=== PATIENT | female | born 1995 | race Caucasian/White ===

== ENCOUNTER 2016-05-31 14:29 | Emergency (ER) | payer OTHER ==
[2016-05-31] MEDS ORDERED: NORCO, ANEXSIA 5/325MG TABLET (HYDROcodone/ACETAMINOPHEN) As Ordered ONE (16:39)
[2016-05-31 17:11] LABS: BASO % 0.1 % (0.0-1.0); EOS # 0.2 K/mm3 (0.0-0.50); EOS % 3.1 % (0.0-3.0); LARGE UNSTAINED CELL # 0.1 K/mm3 (0.0-0.4); LARGE UNSTAINED CELL % 1.1 % (0.0-4.0); LYMPH # 1.3 K/mm3 (1.5-6.5); LYMPH % 17.2 % (24.0-44.0); MEAN CORPUSCULAR HEMOGLOBIN 31.1 pg (27.0-33.0); MEAN CORPUSCULAR HGB CONC 34.2 g/dl (32.0-36.5); MONO # 0.5 K/mm3 (0.0-0.8); MONO % 6.4 % (0.0-5.0); NEUTROPHILS # 5.2 K/mm3 (1.8-7.7); NEUTROPHILS % 72.2 % (36.0-66.0); PLATELET COUNT, AUTOMATED 248 k/mm3 (150-450); RED CELL DISTRIBUTION WIDTH 12.2 % (11.5-14.5); WHITE BLOOD COUNT 7.3 K/mm3 (4.0-10.0)
[2016-05-31 17:25] LABS: CONTROL LINE HCG INT CTR LINE PRESENT
[2016-05-31 17:30] LABS: ANION GAP 8 MEQ/L (8-16); BLOOD UREA NITROGEN 12 MG/DL (7-18); CALCIUM LEVEL 9.1 MG/DL (8.5-10.1); CARBON DIOXIDE LEVEL 27 MEQ/L (21-32); CHLORIDE LEVEL 106 MEQ/L (98-107); CREATININE FOR GFR 0.71 MG/DL (0.55-1.02); GLOMERULAR FILTRATION RATE > 60.0 (>60); GLUCOSE, FASTING 82 MG/DL (70-105); SODIUM LEVEL 141 MEQ/L (136-145)
--- NOTE | 2016-05-31 18:11 | EDDOCDS ---
Physician Documentation [facility] Name: Karyna Villatoro Age: 21 yrs Sex: Female : 1995 Arrival Date: 05/31/2016 Time: 14:29 Bed PD Private MD: AGAPITO Arellano Disposition: 05/31/16 17:59 Discharged to Home/Self Care. Impression: Pain and other conditions associated with female genital organs and menstrual cycle. - Condition is Stable. - Discharge Instructions: Pelvic Pain, Female. - Prescriptions for [place] 5- 325 mg Oral Tablet - take 1 tablet by ORAL route every 6 hours As needed MDD: 4 tabs; 6 tablet. - Medication Reconciliation, Local Pharmacy Hours form. - Follow up: AGAPITO Arellano; When: 2 - 3 days; Reason: Recheck today's complaints. Follow up: Emergency Department; When: As needed; Reason: Worsening of conditions. - Problem is new. - Symptoms have improved. Historical: - Allergies: No known drug Allergies; - Home Meds: 1. meloxicam 15 mg oral tab 1 tab once daily 2. venlafaxine 75 mg oral cp24 1 cap once daily 3. 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 No barriers to communication noted, The patient speaks fluent [place]ib[place]ian. - Family history: Not pertinent. - : The pt / caregiver states he / she is not on anticoagulants. Home medication list is obtained from the patient. - Exposure Risk Screening:: None identified. 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 9 in. (175.26 cm) (R); Pain 8/10; 17:56 BP 117 / 63; Pulse 68; Resp 18; Temp 99.6; Pulse Ox 98% on R/A; Pain 4/10; ar3 14:32 Body Mass Index 21.41 (65.77 kg, 175.26 cm) gr2 MDM: 15:12 HCG,Serum Qualitative Ordered. EDMS 15:13 Type & Screen Ordered. EDMS 16:34 HYDROcodone-acetaminophen 5 mg-325 mg 1 tabs PO once ordered. ar2 16:35 CBC with Diff Ordered. EDMS 16:35 UA Ordered. EDMS 16:35 MED Profile Ordered. EDMS 17:45 CBC with Diff Reviewed. ar2 17:45 UA Reviewed. ar2 17:45 HCG,Serum Qualitative Reviewed. ar2 17:45 Type & Screen Reviewed. ar2 17:45 MED Profile Reviewed. ar2 18:08 [facility] Payment Agreement was scanned into SocialEngine and attached to record. b 18:08 Financial registration complete. gjb Administered Medications: 16:43 Drug: HYDROcodone-acetaminophen 1 tabs [hydrocodone 5 mg-acetaminophen 325 mg tablet (1 mb9 tabs)] Route: PO; Signatures: Dispatcher MedHost EDMS Selene Hinkle RN RN kcs Johnson, Bruce, RN RN bcj Robertshaw, Aaron, FRANCOISE-Hansa PA-C Sabra Rees Michael RN mb9 The chart was reviewed and I authenticate all verbal orders and agree with the evaluation and treatment provided.Corrections: (The following items were deleted from the chart) 16:35 15:12 COMPLETE BLOOD COUNT+LAB ordered. EDMS EDMS Attachments: 18:08 [facility] Payment Agreement gjb MTDD
--- NOTE | 2016-05-31 18:11 | EDDOCDS ---
Nurse's Notes [facility] Name: Karyna Villatoro Age: 21 yrs Sex: Female : 1995 Arrival Date: 05/31/2016 Time: 14:29 Bed PD Private MD: AGAPITO Arellano Diagnosis: Pain and other conditions associated with female genital organs and menstrual cycle Presentation: 05/31 14:56 Presenting complaint: Patient states: she was 11 days late for her period - last night kcs she had pains and started bleeding and having difficulty walking. Still bleeding today and lots of cramping in the lower abdomen and back - radiates down her legs. Risk factors: The patient reports no loss of conciousness prior to arrival. This patient has not had a hysterectomy. This patient has not begun menopause. Adult Sepsis Screening: The patient does not have new or worsening altered mentation. Patient's respiratory rate is less than 22. Systolic blood pressure is greater than 100. Patient has a qSOFA score of 0- Negative Sepsis Screen. Suicide/Homicide risk assessment- the patient denies having any suicidal and/or homicidal ideations and does not present with any other emotional, behavioral or mental health complaints. Status: The patient is a dependent. Transition of care: patient was not received from another setting of care. 14:56 Acuity: DENZEL Level 3 kcs 14:56 Method Of Arrival: Walkin/Carried/Asstd kcs Triage Assessment: 14:59 General: Appears comfortable, slender, well developed, well nourished, well groomed, kcs Behavior is cooperative, pleasant. Pain: Location: lower back and lower abdomen Pain currently is 8 out of 10 on a pain scale. Pt Declines HIV testing. Neurological: Level of Consciousness is awake, alert. Respiratory: Airway is patent Respiratory effort is even, unlabored, Respiratory pattern is regular, symmetrical. : Reports vaginal bleeding that is bright red heavy flow. Derm: Skin is intact, is healthy with good turgor, Skin is dry, Skin is normal. 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 meloxicam 15 mg oral tab 1 tab once daily 2. venlafaxine 75 mg oral cp24 1 cap once daily 3. 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 No barriers to communication noted, The patient speaks fluent Bahraini. - Family history: Not pertinent. - : The pt / caregiver states he / she is not on anticoagulants. Home medication list is obtained from the patient. - Exposure Risk Screening:: None identified. Screenin:08 Screening information is obtained from the patient. Fall risk: No risks identified. bcj Assistance ADL's: requires no assistance with activities of daily living. Abuse/DV Screen: The patient / caregiver reports he/she is:. Nutritional screening: No deficits noted. Advance Directives: Currently, there is no health care proxy. home support is adequate. Vital Signs: 14:32 BP 127 / 73; Pulse 81; Resp 18 S; Temp 98.5(O); Pulse Ox 98% on R/A; Weight 65.77 kg gr2 (R); Height 5 ft. 9 in. (175.26 cm) (R); Pain 8/10; 17:56 BP 117 / 63; Pulse 68; Resp 18; Temp 99.6; Pulse Ox 98% on R/A; Pain 4/10; ar3 14:32 Body Mass Index 21.41 (65.77 kg, 175.26 cm) gr2 Vitals: 14:32 Log In Time: May 31, 2016 at 14:32. gr2 ED Course: 14:31 Patient visited by Bebo London. gr2 14:31 Patient moved to Waiting gr2 14:32 [place] [facility] [place]. gr2 14:34 Patient visited by eBbo London. gr2 14:34 Patient moved to Pre RCE gr2 14:58 Triage Initiated kcs 15:52 Patient moved to Triage 1 ar3 16:16 Rylan Ernst PA-C is PHCP. ar2 16:16 Alysha Jiménez MD is Attending Physician. ar2 16:16 Patient visited by Rylan Ernst PA-C. ar2 16:21 Patient visited by Rylan Ernst PA-C. ar2 16:41 MED Profile Sent. ar3 16:41 CBC with Diff Sent. ar3 16:41 Type & Screen Sent. ar3 16:41 HCG,Serum Qualitative Sent. ar3 16:47 Patient moved to TR2 ar3 16:47 UA Sent. ar3 17:52 Patient moved to PD mb9 17:53 Patient visited by Dunia Solo PCA. ar3 17:57 Patient visited by Dunia Solo PCA. ar3 17:59 E[place] [facility] [place] Physician. ar2 18:08 No apparent distress. Resting quietly. Awaiting disposition. j 18:08 [facility] Payment Agreement was scanned into Zenput and attached to record. gjb 18:08 The patient / caregiver is instructed regarding the plan of care and ED course. bcj 18:08 No IV's were initiated during this patient's visit. No procedures done that require [facility] assistance. Administered Medications: 16:43 Drug: HYDROcodone-acetaminophen 1 tabs [hydrocodone 5 mg-acetaminophen 325 mg tablet (1 mb9 tabs)] Route: PO; Order Results: Lab Order: HCG,Serum Qualitative; SPEC'M 05/31/16 16:41 Test: HCG, SERUM QUALITATIVE; Value: NEGATIVE; Range: NEGATIVE; Status: F Lab Order: Type & Screen; SPEC'M 05/31/16 16:41 Test: BLOOD TYPE; Value: A POS; Status: F Test: AB SCREEN (INDIRECT HIREN)GEL; Value: NEGATIVE; Status: F Lab Order: CBC with Diff; SPEC'M 05/31/16 16:41 Test: WHITE BLOOD COUNT; Value: 7.3; Range: 4.0-10.0; Units: K/mm3; Status: F Test: RED BLOOD COUNT; Value: 4.37; Range: 4.00-5.40; Units: M/mm3; Status: F Test: HEMOGLOBIN; Value: 13.6; Range: 12.0-16.0; Units: g/dl; Status: F Test: HEMATOCRIT; Value: 39.7; Range: 36.0-47.0; Units: %; Status: F Test: MEAN CORPUSCULAR VOLUME; Value: 91.0; Range: 80.0-96.0; Units: fl; Status: F Test: MEAN CORPUSCULAR HEMOGLOBIN; Value: 31.1; Range: 27.0-33.0; Units: pg; Status: F Test: MEAN CORPUSCULAR HGB CONC; Value: 34.2; Range: 32.0-36.5; Units: g/dl; Status: F Test: RED CELL DISTRIBUTION WIDTH; Value: 12.2; Range: 11.5-14.5; Units: %; Status: F Test: PLATELET COUNT, AUTOMATED; Value: 248; Range: 150-450; Units: k/mm3; Status: F Test: NEUTROPHILS %; Value: 72.2; Range: 36.0-66.0; Abnormal: Above high normal; Units: %; Status: F Test: LYMPH %; Value: 17.2; Range: 24.0-44.0; Abnormal: Below low normal; Units: %; Status: F Test: MONO %; Value: 6.4; Range: 0.0-5.0; Abnormal: Above high normal; Units: %; Status: F Test: EOS %; Value: 3.1; Range: 0.0-3.0; Abnormal: Above high normal; Units: %; Status: F Test: BASO %; Value: 0.1; Range: 0.0-1.0; Units: %; Status: F Test: LARGE UNSTAINED CELL %; Value: 1.1; Range: 0.0-4.0; Units: %; Status: F Test: NEUTROPHILS #; Value: 5.2; Range: 1.8-7.7; Units: K/mm3; Status: F Test: LYMPH #; Value: 1.3; Range: 1.5-6.5; Abnormal: Below low normal; Units: K/mm3; Status: F Test: MONO #; Value: 0.5; Range: 0.0-0.8; Units: K/mm3; Status: F Test: EOS #; Value: 0.2; Range: 0.0-0.50; Units: K/mm3; Status: F Test: BASO #; Value: 0.0; Range: 0.0-0.2; Units: K/mm3; Status: F Test: LARGE UNSTAINED CELL #; Value: 0.1; Range: 0.0-0.4; Units: K/mm3; Status: F Lab Order: UA; SPEC'M 05/31/16 16:47 Test: APPEARANCE, URINE; Value: CLEAR; Range: CLEAR; Status: F Test: COLOR, URINE; Value: YELLOW; Range: YELLOW; Status: F Test: PH,URINE; Value: 6.0; Range: 5.0-9.0; Units: UNITS; Status: F Test: SPECIFIC GRAVITY URINE AUTO; Value: 1.017; Range: 1.002-1.035; Status: F Test: PROTEIN, URINE AUTO; Value: NEGATIVE; Range: NEGATIVE; Units: mg/dL; Status: F Test: GLUCOSE, URINE (UA) AUTO; Value: NEGATIVE; Range: NEGATIVE; Units: mg/dL; Status: F Test: KETONE, URINE AUTO; Value: NEGATIVE; Range: NEGATIVE; Units: mg/dL; Status: F Test: UROBILINOGEN, URINE AUTO; Value: 2.0; Range: 0.0-2.0; Abnormal: Above high normal; Units: mg/dL; Status: F Test: BILIRUBIN, URINE AUTO; Value: NEGATIVE; Range: NEGATIVE; Status: F Test: NITRITE, URINE AUTO; Value: NEGATIVE; Range: NEGATIVE; Status: F Test: LEUKOCYTE ESTERASE, URINE AUTO; Value: NEGATIVE; Range: NEGATIVE; Status: F Test: BLOOD, URINE BLOOD; Value: NEGATIVE; Range: NEGATIVE; Status: F Test: WBC, URINE AUTO; Value: 1; Range: 0-3; Units: /HPF; Status: F Test: RBC, URINE AUTO; Value: 2; Range: 0-3; Units: /HPF; Status: F Test: BACTERIA, URINE AUTO; Value: NEGATIVE; Range: NEGATIVE; Status: F Test: SQUAMOUS EPITHELIAL CELL UR AU; Value: 0; Range: 0-6; Units: /HPF; Status: F Test: MUCUS, URINE; Value: SMALL; Range: NEGATIVE; Status: F Test: HYALINE CAST, URINE AUTO; Value: 0; Range: 0-1; Units: /LPF; Status: F Lab Order: MED Profile; [facility] 05/31/16 16:41 Test: GLUCOSE, FASTING; Value: 82; Range: 70-105; Units: MG/DL; Status: F Test: BLOOD UREA NITROGEN; Value: 12; Range: 7-18; Units: MG/DL; Status: F Test: CREATININE FOR GFR; Value: 0.71; Range: 0.55-1.02; Units: MG/DL; Status: F Test: GLOMERULAR FILTRATION RATE; Value: > 60.0; Range: >60; Status: F Test: SODIUM LEVEL; Value: 141; Range: 136-145; Units: MEQ/L; Status: F Test: POTASSIUM SERUM; Value: 4.0; Range: 3.5-5.1; Units: MEQ/L; Status: F Test: CHLORIDE LEVEL; Value: 106; Range: 98-107; Units: MEQ/L; Status: F Test: CARBON DIOXIDE LEVEL; Value: 27; Range: 21-32; Units: MEQ/L; Status: F Test: ANION GAP; Value: 8; Range: 8-16; Units: MEQ/L; Status: F Test: CALCIUM LEVEL; Value: 9.1; Range: 8.5-10.1; Units: MG/DL; Status: F Test Note: ; Units are mL/min/1.73 m2 Chronic Kidney Disease Staging per NKF: Stage I & II GFR >=60 Normal to Mildly Decreased Stage III GFR 30-59 Moderately Decreased Stage IV GFR 15-29 Severely Decreased Stage V GFR <15 Very Little GFR Left ESRD GFR <15 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 ar2 18:08 Discharge Assessment: patient administered narcotics - yes. Pt provided with safe bcj discharge. The following High Risk Discharge criteria are identified: None. Discharged to home. Condition: stable. Discharge instructions given to patient, Instructed on discharge instructions, follow up and referral plans. No special radiology studies were completed. Property :Personal belongings accompany Pt. 18:10 Patient left the ED. j Signatures: Selene Hinkle, RN RN Devin Rincon RN RN Rylan Nova, MARYELLEN BOJORQUEZ ar2 Dunia Solo, ROMELIA ANIMAL RIDE MANAGER ar3 Bebo London gr2 Jarad Munguia RN RN mb9 Sabra Watts MTDD
--- NOTE | 2016-06-02 19:11 | EDDOCDS ---
Physician Documentation [facility] Name: Karyna Villatoro Age: 21 yrs Sex: Female : 1995 Arrival Date: 05/31/2016 Time: 14:29 Bed PD Private MD: AGAPITO Arellano Disposition: 05/31/16 17:59 Discharged to Home/Self Care. Impression: Pain and other conditions associated with female genital organs and menstrual cycle. - Condition is Stable. - Discharge Instructions: Pelvic Pain, Female. - Prescriptions for [place] 5- 325 mg Oral Tablet - take 1 tablet by ORAL route every 6 hours As needed MDD: 4 tabs; 6 tablet. - Medication Reconciliation, Local Pharmacy Hours form. - Follow up: AGAPITO Arellano; When: 2 - 3 days; Reason: Recheck today's complaints. Follow up: Emergency Department; When: As needed; Reason: Worsening of conditions. - Problem is new. - Symptoms have improved. Historical: - Allergies: No known drug Allergies; - Home Meds: 1. meloxicam 15 mg oral tab 1 tab once daily 2. venlafaxine 75 mg oral cp24 1 cap once daily 3. 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 No barriers to communication noted, The patient speaks fluent Cymro. - Family history: Not pertinent. - : The pt / caregiver states he / she is not on anticoagulants. Home medication list is obtained from the patient. - Exposure Risk Screening:: None identified. 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 9 in. (175.26 cm) (R); Pain 8/10; 17:56 BP 117 / 63; Pulse 68; Resp 18; Temp 99.6; Pulse Ox 98% on R/A; Pain 4/10; ar3 14:32 Body Mass Index 21.41 (65.77 kg, 175.26 cm) gr2 MDM: 15:12 HCG,Serum Qualitative Ordered. EDMS 15:13 Type & Screen Ordered. EDMS 16:34 HYDROcodone-acetaminophen 5 mg-325 mg 1 tabs PO once ordered. ar2 16:35 CBC with Diff Ordered. EDMS 16:35 UA Ordered. EDMS 16:35 MED Profile Ordered. EDMS 17:45 CBC with Diff Reviewed. ar2 17:45 UA Reviewed. ar2 17:45 HCG,Serum Qualitative Reviewed. ar2 17:45 Type & Screen Reviewed. ar2 17:45 MED Profile Reviewed. ar2 18:08 [facility] Payment Agreement was scanned into Amiigo and attached to record. [facility] 18: Financial registration complete. [facility] 06/01 12:49 T-Sheet-- Draft Copy was scanned into Amiigo and attached to record. gb Administered Medications: 05/31 16:43 Drug: HYDROcodone-acetaminophen 1 tabs [hydrocodone 5 mg-acetaminophen 325 mg tablet (1 mb9 tabs)] Route: PO; Signatures: Dispatcher MedHost Selene Kitchen, RN RN Devin Rincon RN RN My Hall, Reg Reg gb Rylan Ernst PA-C PASabra Vasques Michael RN mb9 The chart was reviewed and I authenticate all verbal orders and agree with the evaluation and treatment provided.Corrections: (The following items were deleted from the chart) 16:35 15:12 COMPLETE BLOOD COUNT+LAB ordered. EDMS EDMS Attachments: 18:08 [facility] Payment Agreement [facility] 06/01 12:49 T-Sheet-- Draft Copy gb Chart Complete MTDD
--- NOTE | 2016-06-02 19:11 | EDDOCDS ---
Physician Documentation [facility] Name: Karyna Villatoro Age: 21 yrs Sex: Female : 1995 Arrival Date: 05/31/2016 Time: 14:29 Bed PD Private MD: AGAPITO Arellano Disposition: 05/31/16 17:59 Discharged to Home/Self Care. Impression: Pain and other conditions associated with female genital organs and menstrual cycle. - Condition is Stable. - Discharge Instructions: Pelvic Pain, Female. - Prescriptions for [place] 5- 325 mg Oral Tablet - take 1 tablet by ORAL route every 6 hours As needed MDD: 4 tabs; 6 tablet. - Medication Reconciliation, Local Pharmacy Hours form. - Follow up: AGAPITO Arellano; When: 2 - 3 days; Reason: Recheck today's complaints. Follow up: Emergency Department; When: As needed; Reason: Worsening of conditions. - Problem is new. - Symptoms have improved. Historical: - Allergies: No known drug Allergies; - Home Meds: 1. meloxicam 15 mg oral tab 1 tab once daily 2. venlafaxine 75 mg oral cp24 1 cap once daily 3. 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 No barriers to communication noted, The patient speaks fluent [place] Island[place]. - Family history: Not pertinent. - : The pt / caregiver states he / she is not on anticoagulants. Home medication list is obtained from the patient. - Exposure Risk Screening:: None identified. 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 9 in. (175.26 cm) (R); Pain 8/10; 17:56 BP 117 / 63; Pulse 68; Resp 18; Temp 99.6; Pulse Ox 98% on R/A; Pain 4/10; ar3 14:32 Body Mass Index 21.41 (65.77 kg, 175.26 cm) gr2 MDM: 15:12 HCG,Serum Qualitative Ordered. EDMS 15:13 Type & Screen Ordered. EDMS 16:34 HYDROcodone-acetaminophen 5 mg-325 mg 1 tabs PO once ordered. ar2 16:35 CBC with Diff Ordered. EDMS 16:35 UA Ordered. EDMS 16:35 MED Profile Ordered. EDMS 17:45 CBC with Diff Reviewed. ar2 17:45 UA Reviewed. ar2 17:45 HCG,Serum Qualitative Reviewed. ar2 17:45 Type & Screen Reviewed. ar2 17:45 MED Profile Reviewed. ar2 18:08 [facility] Payment Agreement was scanned into FolderBoy and attached to record. [facility] 18: Financial registration complete. [facility] 06/01 12:49 T-Sheet-- Draft Copy was scanned into FolderBoy and attached to record. gb Administered Medications: 05/31 16:43 Drug: HYDROcodone-acetaminophen 1 tabs [hydrocodone 5 mg-acetaminophen 325 mg tablet (1 mb9 tabs)] Route: PO; Signatures: Dispatcher MedHost Selene Kitchen, RN RN Devin Rincon RN RN My Hall, Reg Reg gb Rylan Ernst PA-C PASabra Vasques Michael RN mb9 The chart was reviewed and I authenticate all verbal orders and agree with the evaluation and treatment provided.Corrections: (The following items were deleted from the chart) 16:35 15:12 COMPLETE BLOOD COUNT+LAB ordered. EDMS EDMS Attachments: 18:08 [facility] Payment Agreement [facility] 06/01 12:49 T-Sheet-- Draft Copy gb Chart Complete MTDD
--- NOTE | 2016-06-02 19:11 | EDDOCDS ---
Nurse's Notes [facility] Name: Karyna Villatoro Age: 21 yrs Sex: Female : 1995 Arrival Date: 05/31/2016 Time: 14:29 Bed PD Private MD: AGAPITO Arellano Diagnosis: Pain and other conditions associated with female genital organs and menstrual cycle Presentation: 05/31 14:56 Presenting complaint: Patient states: she was 11 days late for her period - last night kcs she had pains and started bleeding and having difficulty walking. Still bleeding today and lots of cramping in the lower abdomen and back - radiates down her legs. Risk factors: The patient reports no loss of conciousness prior to arrival. This patient has not had a hysterectomy. This patient has not begun menopause. Adult Sepsis Screening: The patient does not have new or worsening altered mentation. Patient's respiratory rate is less than 22. Systolic blood pressure is greater than 100. Patient has a qSOFA score of 0- Negative Sepsis Screen. Suicide/Homicide risk assessment- the patient denies having any suicidal and/or homicidal ideations and does not present with any other emotional, behavioral or mental health complaints. Status: The patient is a dependent. Transition of care: patient was not received from another setting of care. 14:56 Acuity: DENZEL Level 3 kcs 14:56 Method Of Arrival: Walkin/Carried/Asstd kcs Triage Assessment: 14:59 General: Appears comfortable, slender, well developed, well nourished, well groomed, kcs Behavior is cooperative, pleasant. Pain: Location: lower back and lower abdomen Pain currently is 8 out of 10 on a pain scale. Pt Declines HIV testing. Neurological: Level of Consciousness is awake, alert. Respiratory: Airway is patent Respiratory effort is even, unlabored, Respiratory pattern is regular, symmetrical. : Reports vaginal bleeding that is bright red heavy flow. Derm: Skin is intact, is healthy with good turgor, Skin is dry, Skin is normal. 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 meloxicam 15 mg oral tab 1 tab once daily 2. venlafaxine 75 mg oral cp24 1 cap once daily 3. 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 No barriers to communication noted, The patient speaks fluent Yemeni. - Family history: Not pertinent. - : The pt / caregiver states he / she is not on anticoagulants. Home medication list is obtained from the patient. - Exposure Risk Screening:: None identified. Screenin:08 Screening information is obtained from the patient. Fall risk: No risks identified. bcj Assistance ADL's: requires no assistance with activities of daily living. Abuse/DV Screen: The patient / caregiver reports he/she is:. Nutritional screening: No deficits noted. Advance Directives: Currently, there is no health care proxy. home support is adequate. Vital Signs: 14:32 BP 127 / 73; Pulse 81; Resp 18 S; Temp 98.5(O); Pulse Ox 98% on R/A; Weight 65.77 kg gr2 (R); Height 5 ft. 9 in. (175.26 cm) (R); Pain 8/10; 17:56 BP 117 / 63; Pulse 68; Resp 18; Temp 99.6; Pulse Ox 98% on R/A; Pain 4/10; ar3 14:32 Body Mass Index 21.41 (65.77 kg, 175.26 cm) gr2 Vitals: 14:32 Log In Time: May 31, 2016 at 14:32. gr2 ED Course: 14:31 Patient visited by Bebo London. gr2 14:31 Patient moved to Waiting gr2 14:32 Eileen [facility] [place] [facility] [place] is Private Physician. gr2 14:34 Patient visited by Bebo London. gr2 14:34 Patient moved to Pre RCE gr2 14:58 Triage Initiated kcs 15:52 Patient moved to Triage 1 ar3 16:16 Rylan Ernst PA-C is PHCP. ar2 16:16 Alysha Jiménez MD is Attending Physician. ar2 16:16 Patient visited by Rylan Ernst PA-C. ar2 16:21 Patient visited by Rylan Ernst PA-C. ar2 16:41 MED Profile Sent. ar3 16:41 CBC with Diff Sent. ar3 16:41 Type & Screen Sent. ar3 16:41 HCG,Serum Qualitative Sent. ar3 16:47 Patient moved to TR2 ar3 16:47 UA Sent. ar3 17:52 Patient moved to PD mb9 17:53 Patient visited by Dunia Solo PCA. ar3 17:57 Patient visited by Dunia Solo PCA. ar3 17:59 Eileen [facility] [place] [place] is Referral Physician. ar2 18:08 No apparent distress. Resting quietly. Awaiting disposition. bcj 18:08 [facility] [place] Agreement was scanned into [employer] and attached to record. gjb 18:08 The patient / caregiver is instructed regarding the plan of care and ED course. bcj 18:08 No IV's were initiated during this patient's visit. No procedures done that require [facility] assistance. 06/01 12:49 T-Sheet-- Draft Copy was scanned into [employer] and attached to record. gb Administered Medications: 05/31 16:43 Drug: HYDROcodone-acetaminophen 1 tabs [hydrocodone 5 mg-acetaminophen 325 mg tablet (1 mb9 tabs)] Route: PO; Order Results: Lab Order: HCG,Serum Qualitative; SPEC'M 05/31/16 16:41 Test: HCG, SERUM QUALITATIVE; Value: NEGATIVE; Range: NEGATIVE; Status: F Lab Order: Type & Screen; SPEC'M 05/31/16 16:41 Test: BLOOD TYPE; Value: A POS; Status: F Test: AB SCREEN (INDIRECT HIREN)GEL; Value: NEGATIVE; Status: F Lab Order: CBC with Diff; SPEC'M 05/31/16 16:41 Test: WHITE BLOOD COUNT; Value: 7.3; Range: 4.0-10.0; Units: K/mm3; Status: F Test: RED BLOOD COUNT; Value: 4.37; Range: 4.00-5.40; Units: M/mm3; Status: F Test: HEMOGLOBIN; Value: 13.6; Range: 12.0-16.0; Units: g/dl; Status: F Test: HEMATOCRIT; Value: 39.7; Range: 36.0-47.0; Units: %; Status: F Test: MEAN CORPUSCULAR VOLUME; Value: 91.0; Range: 80.0-96.0; Units: fl; Status: F Test: MEAN CORPUSCULAR HEMOGLOBIN; Value: 31.1; Range: 27.0-33.0; Units: pg; Status: F Test: MEAN CORPUSCULAR HGB CONC; Value: 34.2; Range: 32.0-36.5; Units: g/dl; Status: F Test: RED CELL DISTRIBUTION WIDTH; Value: 12.2; Range: 11.5-14.5; Units: %; Status: F Test: PLATELET COUNT, AUTOMATED; Value: 248; Range: 150-450; Units: k/mm3; Status: F Test: NEUTROPHILS %; Value: 72.2; Range: 36.0-66.0; Abnormal: Above high normal; Units: %; Status: F Test: LYMPH %; Value: 17.2; Range: 24.0-44.0; Abnormal: Below low normal; Units: %; Status: F Test: MONO %; Value: 6.4; Range: 0.0-5.0; Abnormal: Above high normal; Units: %; Status: F Test: EOS %; Value: 3.1; Range: 0.0-3.0; Abnormal: Above high normal; Units: %; Status: F Test: BASO %; Value: 0.1; Range: 0.0-1.0; Units: %; Status: F Test: LARGE UNSTAINED CELL %; Value: 1.1; Range: 0.0-4.0; Units: %; Status: F Test: NEUTROPHILS #; Value: 5.2; Range: 1.8-7.7; Units: K/mm3; Status: F Test: LYMPH #; Value: 1.3; Range: 1.5-6.5; Abnormal: Below low normal; Units: K/mm3; Status: F Test: MONO #; Value: 0.5; Range: 0.0-0.8; Units: K/mm3; Status: F Test: EOS #; Value: 0.2; Range: 0.0-0.50; Units: K/mm3; Status: F Test: BASO #; Value: 0.0; Range: 0.0-0.2; Units: K/mm3; Status: F Test: LARGE UNSTAINED CELL #; Value: 0.1; Range: 0.0-0.4; Units: K/mm3; Status: F Lab Order: UA; SPEC'M 05/31/16 16:47 Test: APPEARANCE, URINE; Value: CLEAR; Range: CLEAR; Status: F Test: COLOR, URINE; Value: YELLOW; Range: YELLOW; Status: F Test: PH,URINE; Value: 6.0; Range: 5.0-9.0; Units: UNITS; Status: F Test: SPECIFIC GRAVITY URINE AUTO; Value: 1.017; Range: 1.002-1.035; Status: F Test: PROTEIN, URINE AUTO; Value: NEGATIVE; Range: NEGATIVE; Units: mg/dL; Status: F Test: GLUCOSE, URINE (UA) AUTO; Value: NEGATIVE; Range: NEGATIVE; Units: mg/dL; Status: F Test: KETONE, URINE AUTO; Value: NEGATIVE; Range: NEGATIVE; Units: mg/dL; Status: F Test: UROBILINOGEN, URINE AUTO; Value: 2.0; Range: 0.0-2.0; Abnormal: Above high normal; Units: mg/dL; Status: F Test: BILIRUBIN, URINE AUTO; Value: NEGATIVE; Range: NEGATIVE; Status: F Test: NITRITE, URINE AUTO; Value: NEGATIVE; Range: NEGATIVE; Status: F Test: LEUKOCYTE ESTERASE, URINE AUTO; Value: NEGATIVE; Range: NEGATIVE; Status: F Test: BLOOD, URINE BLOOD; Value: NEGATIVE; Range: NEGATIVE; Status: F Test: WBC, URINE AUTO; Value: 1; Range: 0-3; Units: /HPF; Status: F Test: RBC, URINE AUTO; Value: 2; Range: 0-3; Units: /HPF; Status: F Test: BACTERIA, URINE AUTO; Value: NEGATIVE; Range: NEGATIVE; Status: F Test: SQUAMOUS EPITHELIAL CELL UR AU; Value: 0; Range: 0-6; Units: /HPF; Status: F Test: MUCUS, URINE; Value: SMALL; Range: NEGATIVE; Status: F Test: HYALINE CAST, URINE AUTO; Value: 0; Range: 0-1; Units: /LPF; Status: F Lab Order: MED Profile; SPEC'M 05/31/16 16:41 Test: GLUCOSE, FASTING; Value: 82; Range: 70-105; Units: MG/DL; Status: F Test: BLOOD UREA NITROGEN; Value: 12; Range: 7-18; Units: MG/DL; Status: F Test: CREATININE FOR GFR; Value: 0.71; Range: 0.55-1.02; Units: MG/DL; Status: F Test: GLOMERULAR FILTRATION RATE; Value: > 60.0; Range: >60; Status: F Test: SODIUM LEVEL; Value: 141; Range: 136-145; Units: MEQ/L; Status: F Test: POTASSIUM SERUM; Value: 4.0; Range: 3.5-5.1; Units: MEQ/L; Status: F Test: CHLORIDE LEVEL; Value: 106; Range: 98-107; Units: MEQ/L; Status: F Test: CARBON DIOXIDE LEVEL; Value: 27; Range: 21-32; Units: MEQ/L; Status: F Test: ANION GAP; Value: 8; Range: 8-16; Units: MEQ/L; Status: F Test: CALCIUM LEVEL; Value: 9.1; Range: 8.5-10.1; Units: MG/DL; Status: F Test Note: ; Units are mL/min/1.73 m2 Chronic Kidney Disease Staging per NKF: Stage I & II GFR >=60 Normal to Mildly Decreased Stage III GFR 30-59 Moderately Decreased Stage IV GFR 15-29 Severely Decreased Stage V GFR <15 Very Little GFR Left ESRD GFR <15 on TRUST ADMINISTRATOR Outcome: 17:59 Discharge ordered by Provider. ar2 18:08 Discharge Assessment: patient administered narcotics - yes. Pt provided with safe bcj discharge. The following High Risk Discharge criteria are identified: None. Discharged to home. Condition: stable. Discharge instructions given to patient, Instructed on discharge instructions, follow up and referral plans. No special radiology studies were completed. Property :Personal belongings accompany Pt. 18:10 Patient left the ED. j Signatures: Selene Hinkle RN RN Devin Rincon RN RN My Hall, Rylan Almonte PA-C PA-C ar2 Dunia Solo PCA MONUMENTAL [place] ar3 Bebo London gr2 Jarad Munguia,LC RN [email or web address] Sabra Watts Chart Complete MTDD
== END 2016-05-31 18:10 | disposition home or self-care (01) ==
LOC: M ED 14:29
DX: N94.6 Dysmenorrhea, unspecified (principal); M19.90 Unspecified osteoarthritis, unspecified site; E28.2 Polycystic ovarian syndrome; F41.9 Anxiety disorder, unspecified; F33.9 Major depressive disorder, recurrent, unspecified; F17.200 Nicotine dependence, unspecified, uncomplicated; Z79.899 Other long term (current) drug therapy

== ENCOUNTER 2016-07-01 13:22 | Emergency (ER) | payer OTHER ==
[~2016-07-01] VITALS: Ht 175.3 cm; Wt 65.8 kg
[2016-07-01] MEDS ORDERED: diphenhydrAMINE INJ 50MG/ML VIAL (J1200) As Ordered ONE (14:42)
[2016-07-01] MEDS ORDERED: METOCLOPRAMIDE INJ 10MG/2ML VIAL (J2765) As Ordered ONE (14:42)
[2016-07-01 14:50] LABS: BASO % 0.1 % (0.0-1.0); EOS # 0.1 K/mm3 (0.0-0.50); EOS % 1.8 % (0.0-3.0); LARGE UNSTAINED CELL # 0.1 K/mm3 (0.0-0.4); LYMPH # 1.3 K/mm3 (1.5-6.5); MEAN CORPUSCULAR HEMOGLOBIN 30.9 pg (27.0-33.0); MEAN CORPUSCULAR HGB CONC 33.7 g/dl (32.0-36.5); MEAN CORPUSCULAR VOLUME 91.6 fl (80.0-96.0); MONO # 0.3 K/mm3 (0.0-0.8); MONO % 4.3 % (0.0-5.0); NEUTROPHILS # 5.1 K/mm3 (1.8-7.7); NEUTROPHILS % 73.8 % (36.0-66.0); PLATELET COUNT, AUTOMATED 221 k/mm3 (150-450); RED CELL DISTRIBUTION WIDTH 11.9 % (11.5-14.5); WHITE BLOOD COUNT 6.9 K/mm3 (4.0-10.0)
[2016-07-01 15:05] LABS: ALBUMIN 4.3 GM/DL (3.2-5.2); ALBUMIN/GLOBULIN RATIO 1.26 (1.00-1.93); ALKALINE PHOSPHATASE 75 U/L (45-117); ALT/SGPT 20 U/L (12-78); AMYLASE 22 U/L (25-115); ANION GAP 9 MEQ/L (8-16); AST/SGOT 12 U/L (15-37); BILIRUBIN,DIRECT 0.1 MG/DL (0.0-0.2); BILIRUBIN,TOTAL 0.6 MG/DL (0.2-1.0); BLOOD UREA NITROGEN 14 MG/DL (7-18); CALCIUM LEVEL 9.4 MG/DL (8.5-10.1); CARBON DIOXIDE LEVEL 26 MEQ/L (21-32); CHLORIDE LEVEL 105 MEQ/L (98-107); GLOMERULAR FILTRATION RATE > 60.0 (>60); GLUCOSE, FASTING 90 MG/DL (70-105); POTASSIUM SERUM 3.4 MEQ/L (3.5-5.1); SODIUM LEVEL 140 MEQ/L (136-145); TOTAL PROTEIN 7.7 GM/DL (6.4-8.2)
[2016-07-01 15:18] LABS: CONTROL LINE UCG INT CTR LINE PRESENT
--- NOTE | 2016-07-01 15:31 | REP ---
RIGHT UPPER QUADRANT ULTRASOUND: Real-time sonographic evaluation of the right upper quadrant performed. The gallbladder demonstrates no evidence of intraluminal sludge or calculi, wall thickening or pericholecystic fluid. There is no intrahepatic or extrahepatic biliary dilatation, the common bile duct measuring 5 mm in diameter. Liver and pancreas demonstrate homogeneous echotexture with no gross mass. The right kidney dimensions no hydronephrosis or nephrolithiasis with normal size at 12.1 cm in length. IMPRESSION: Negative right upper quadrant ultrasound. Signed by Thanh Lala MD 07/01/2016 04:47 P
[2016-07-01] MEDS ORDERED: GASTROGRAFIN SOLUTION 30ML (Q9963) As Ordered ONE (15:42)
--- NOTE | 2016-07-01 16:02 | REP ---
Chest x-ray: Two views. History: Chest pain. . Comparison study: January 28, 2015 . Findings: The lungs are well inflated and free of infiltrate. The pleural angles are sharp. The heart size is normal. Pulmonary vasculature is not increased. No significant bony abnormality is seen. Impression: Negative chest x-ray. Signed by James Munoz MD 07/01/2016 03:53 P
[2016-07-01] MEDS ORDERED: ISOVUE-370 76% 100ML VIAL (Q9967) As Ordered ONE (17:13)
[2016-07-01 18:24] LABS: HCG, SERUM QUANTITATIVE < 1.0 MIU/ML
--- NOTE | 2016-07-01 18:54 | REP ---
CT study of the abdomen and pelvis with IV and oral contrast: History: Abdominal pain. Comparison CT study: 09/13/2014. CT contrast dose: 100 mL of Isovue-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 The lung bases show no evidence of infiltrate or pleural effusion. The liver and the spleen are normal in size homogeneous in texture. No adrenal lesion is seen. Pancreas shows no abnormality. The kidneys enhance symmetrically and are morphologically intact. Ascites is visible in the upper abdomen in the perihepatic and perisplenic region and extending along the pericolic gutters. In the pelvis there is moderate fairly high density ascites filling the cul-de-sac consistent with peritoneal hemorrhage. There is a cystic mass in the right adnexa measuring 4.5 cm in greatest diameter. No uterine abnormality is observed. Urinary bladder is intact. Small and large intestinal bowel loops are unremarkable. Impression: Findings compatible with moderate hemoperitoneum. This combined with a 4.5 cm cystic mass in the right adnexa raises a question of ectopic with rupture in this age group. Findings were telephoned to the referring provider in the ED at the time of this dictation. Signed by James Munoz MD 07/01/2016 07:30 P
--- NOTE | 2016-07-01 19:20 | REPUSA ---
CLINICAL HISTORY: History of ovarian cyst. Subseptate uterus. TECHNIQUE: Realtime sonographic images were obtained in multiple projections. FINDINGS: There is a subseptate uterus that is anteverted measuring 7.62 x 3.58 x 5.11 cm. The endometrial ech o pattern is within normal limits measuring 8.7 mm on the right and 7.6 mm on the left. There is a moderate amount of blood seen in the cul-de-sac. There is a trace amount of free fluid see n in Lerma's pouch. The right ovary measures 5.05 x 4.35 x 4.85 cm with a hemorrhagic cyst measuring 4.17 x 3.85 x 3.62 c m. The left ovary measures 2.8 x 2.3 x 2.4 cm. There is no evidence for abnormal vascularity. The bladder measures 9.54 x 6.14 x 0.92 cm. IMPRESSION: 1. Subseptate uterus. 2. Moderate amount of blood in the cul-de-sac. Trace free fluid in Lerma's pouch. 3. 4 cm right ovarian hemorrhagic cyst. Consider follow-up study in one to 2 menstrual cycles. Thank you for your kind referral of this patient. We appreciate the opportunity to participate in thi s patient's care.
[2016-07-01] MEDS ORDERED: VENL150C43 PO (19:34)
[2016-07-01] MEDS ORDERED: PRENTAB16 PO (19:34)
[2016-07-01] MEDS ORDERED: MELO15TA4 PO (19:34)
[2016-07-01] MEDS ORDERED: ALBU17IN INH (19:34)
[2016-07-01] MEDS ORDERED: NORCO 5/325MG TABLET (BULK) As Ordered ONE (19:57)
--- NOTE | 2016-07-01 20:15 | EDDOCDS ---
Physician Documentation [facility] Name: Karyna Villatoro Age: 21 yrs Sex: Female : 1995 Arrival Date: 07/01/2016 Time: 13:22 Bed I5 / M5 Private MD: Eileen [facility] [place] Disposition: 07/01/16 19:57 Discharged to Home/Self Care. Impression: Upper abdominal pain, unspecified - RUQ, Hemoperitoneum, Other ovarian cysts - RIGHT, 4.5CM HEMORRHAGIC. - Condition is Stable. - Discharge Instructions: Ovarian Cyst, Abdominal Pain, Women. - Prescriptions for [place] 5- 325 mg Oral Tablet - take 1 tablet by ORAL route every 6 hours As needed MDD: 4 tabs; 15 tablet. - Medication Reconciliation, Local Pharmacy Hours form. - Follow up: Emergency Department; When: As needed; Reason: Worsening of conditions. Follow up: Kendy Geller MD; When: Call to arrange an appointment; Reason: Wound/Symptom Recheck, Recheck today's complaints, Continuance of care. - Problem is new. - Symptoms have improved. Historical: - Allergies: no known allergies; - Home Meds: 1. meloxicam 15 mg oral tab 1 tab once daily 2. 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 No barriers to communication noted, The patient speaks fluent Amharic. - Family history: Not pertinent. - : The pt / caregiver states he / she is not on anticoagulants. Home medication list is obtained from the patient. - Exposure Risk Screening:: None identified. 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 9 in. (175.26 cm); Pain 7/10; 15:36 Pain 2/10; kc3 15:53 BP 106 / 56; Pulse 67; Resp 18; Pulse Ox 98% on R/A; Pain 2/10; kc3 18:54 BP 125 / 65; Pulse 79; Resp 18; Temp 98.7(O); Pulse Ox 100% on R/A; Pain 2/10; jmv 20:12 BP 112 / 59; Pulse 81; Resp 16; Temp 97.9; Pulse Ox 100% on R/A; Pain 3/10; ld5 13:24 Body Mass Index 21.41 (65.77 kg, 175.26 cm) elp MDM: 14:22 NS 0.9% 1000 ml IV at bolus once ordered. btw 14:22 IV Saline Lock ordered. btw 14:22 Undress patient appropriately for examination ordered. btw 14:22 Metoclopramide 20 mg IV at 80 mg/hr once over 15 mins ordered. btw 14:22 diphenhydrAMINE 50 mg IVP once ordered. btw 14:23 Amylase Ordered. EDMS 14:23 Basic Metabolic Profile Ordered. EDMS 14:23 CBC with Diff Ordered. EDMS 14:23 Lipase Ordered. EDMS 14:23 Liver Profile Ordered. EDMS 14:23 Urinalysis Ordered. EDMS 14:23 Urine Culture Ordered. EDMS 14:23 Gallbladder US Ordered. EDMS 14:24 NOTHING BY MOUTH+DIET ordered. EDMS 14:25 UCG by Nursing ordered. btw 14:41 UCG- In Lab Ordered. EDMS 14:43 Financial registration complete. lg 15:15 [facility] Payment Agreement was scanned into [employer] and attached to record. lg 15:31 Amylase Reviewed. btw 15:31 Basic Metabolic Profile Reviewed. btw 15:31 CBC with Diff Reviewed. btw 15:31 Liver Profile Reviewed. btw 15:31 Lipase Reviewed. btw 15:31 Urinalysis Reviewed. btw 15:31 UCG- In Lab Reviewed. btw 15:35 Chest, 2 View (pa\E\lat) Ordered. EDMS 15:35 CT ABD & PELVIS: IV and Oral Contrast Ordered. EDMS 16:36 Diatrizoate Meglumine & Sodium Liquid 10 ml PO once; mix in 290cc of water ordered. kc3 16:36 Diatrizoate Meglumine & Sodium Liquid 10 ml PO once; mix in 290cc of water give at 1625 kc3 ordered. 17:55 Gallbladder US Reviewed. btw 17:55 Chest, 2 View (pa\E\lat) Reviewed. btw 17:55 -US Pelvic Non-Ob Complete Ordered. EDMS 17:55 DUPLEX SCAN LIMITED (DOPPLER)+US Ordered. EDMS 17:56 Lactic Acid (Lala tube on ice) Ordered. EDMS 17:56 Type & Screen Ordered. EDMS 18:01 Transvaginal NON- US Ordered. EDMS 18:07 HCG, SERUM QUANTITATIVE Ordered. EDMS 18:17 BED REQUEST+ADM ordered. EDMS 19:46 ED course: SPOKE WITH DR. MARTINEZ. ADVISED MOST LIKELY NOT SURGICAL. CALLED AND SPOKE dt4 WITH DR. GELLER AND ADVISED PAIN MEDICATION, SEND HOME AND WILL FOLLOW UP IN OFFICE. . 19:57 HYDROcodone-acetaminophen 4 pack- 5 mg-325 mg 1 packets PO Per package directions; dt4 Dispense with patient. 1 po q4h prn for pain ordered. Administered Medications: 15:09 Drug: diphenhydrAMINE 50 mg [diphenhydramine 50 mg/mL injection solution (1 mL)] Route: kc3 IVP; Site: left antecubital; 15:36 Follow up: Pain 2/10 Adult kc3 15:10 Drug: NS 0.9% 1000 ml [sodium chloride 0.9 % intravenous solution] Route: IV; Rate: kc3 bolus; Site: left antecubital; 19:56 Follow up: IV Status: Completed infusion; IV Intake: 1000ml ld5 15:10 Drug: Metoclopramide 20 mg [metoclopramide 5 mg/mL injection solution] Route: IV; Rate: kc3 80 mg/hr; Infused Over: 15 mins; Site: left antecubital; 15:36 Follow up: IV Status: Completed infusion kc3 16:37 Drug: Diatrizoate Meglumine & Sodium 10 ml [diatrizoate meglumine and diat.sodium 66 kc3 %-10 % oral solution (10 mL)] Route: PO; 16:37 Drug: Diatrizoate Meglumine & Sodium 10 ml [diatrizoate meglumine and diat.sodium 66 kc3 %-10 % oral solution (10 mL)] Route: PO; 20:04 Drug: HYDROcodone-acetaminophen 4 pack- 1 packets [hydrocodone 5 mg-acetaminophen 325 ld5 mg tablet (1 tabs)] {Co-Signature: rs3 (Natalee Silverman RN).} Route: PO; 20:08 Follow up: Response: Med's dispensed home ld5 Signatures: Dispatcher [employer] EDMS Jaxon Eldridge, Reg Reg lg Garrick Angeles PA PA btw Dickerson, Laura,RN RN ld5 Corina Luna RN RN ttb Anastasia Sierra PA-C PADoreen dt4 Corinna Anglin RN RN [id number] Shannan Sanchez RN RN kc3 Natalee Silverman RN rs3 The chart was reviewed and I authenticate all verbal orders and agree with the evaluation and treatment provided.Corrections: (The following items were deleted from the chart) 18:07 17:59 HCG, SERUM QUANTITATIVE+LAB ordered. EDMS EDMS Attachments: 15:15 [facility] Payment Agreement lg MTDD
--- NOTE | 2016-07-01 20:15 | EDDOCDS ---
Nurse's Notes [facility] Name: Karyna Villatoro Age: 21 yrs Sex: Female : 1995 Arrival Date: 07/01/2016 Time: 13:22 Bed I5 / M5 Private MD: AGAPITO Arellano Diagnosis: Upper abdominal pain, unspecified-RUQ;Hemoperitoneum;Other ovarian cysts-RIGHT, 4.5CM HEMORRHAGIC Presentation: 07/01 13:26 Presenting complaint: Patient states: that she started to have SOB last night. Pt ms18 states that the R side of her chest hurts when she lays down. Adult Sepsis Screening: The patient does not have new or worsening altered mentation. Patient's respiratory rate is less than 22. Systolic blood pressure is greater than 100. Patient has a qSOFA score of 0- Negative Sepsis Screen. Suicide/Homicide risk assessment- the patient denies having any suicidal and/or homicidal ideations and does not present with any other emotional, behavioral or mental health complaints. Status: The patient is a dependent. Transition of care: patient was not received from another setting of care. 13:26 Acuity: DENZEL Level 3 ms18 13:26 Method Of Arrival: Walkin/Carried/Asstd ms18 Triage Assessment: 13:28 General: Appears in no apparent distress, comfortable, slender, Behavior is appropriate ms18 for age, cooperative. Pain: Location: anterior aspect of right upper chest and diaphragm Pain currently is 7 out of 10 on a pain scale. HIV screening NA for this visit Offered previously. Neurological: No deficits noted. Respiratory: Onset: The symptoms/episode began/occurred yesterday, Airway is patent Respiratory effort is even, unlabored, Respiratory pattern is regular, symmetrical, Denies cough. Derm: Skin is pink, warm & dry. 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 meloxicam 15 mg oral tab 1 tab once daily 2. 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 No barriers to communication noted, The patient speaks fluent Burkinan. - Family history: Not pertinent. - : The pt / caregiver states he / she is not on anticoagulants. Home medication list is obtained from the patient. - Exposure Risk Screening:: None identified. Screenin:44 Screening information is obtained from the patient. Fall risk: No risks identified. ttb Assistance ADL's: requires no assistance with activities of daily living. Abuse/DV Screen: The patient / caregiver reports he/she is: not in a situation that causes fear, pain or injury. Nutritional screening: No deficits noted. Advance Directives: Currently, there is no health care proxy. home support is adequate. Assessment: 13:44 General: Appears in no apparent distress, well nourished, well groomed, Behavior is ttb appropriate for age, cooperative, pleasant. Neurological: Level of Consciousness is awake, alert. Cardiovascular: Chest pain is denied Reports pain with respiration to right chest and epigastric area. Respiratory: Airway is patent Respiratory effort is even, Respiratory pattern is regular, symmetrical, Breath sounds are clear bilaterally. Reports pain with respiration the patient has mild shortness of breath. GI: Reports lower abdominal pain, upper abd pain, nausea. : Reports burning with urination since last night after intercourse. Derm: Skin is normal. Injury Description: pain started last night around 10pm after intercourse.... 14:50 General: Appears in no apparent distress, comfortable, Behavior is appropriate for age, kc3 cooperative. Pain: Pain currently is 2 out of 10 on a pain scale. Neurological: No deficits noted. Respiratory: Respiratory effort is even, unlabored. Derm: Skin is pink, warm & dry. 15:53 General: Appears in no apparent distress, comfortable, Behavior is appropriate for age, kc3 cooperative. Neurological: Level of Consciousness is awake, alert, obeys commands. Respiratory: Airway is patent Respiratory effort is even, unlabored. Derm: Skin is pink, warm & dry. 16:45 General: Appears in no apparent distress, comfortable. Pain: Pain currently is 2 out of kc3 10 on a pain scale. Neurological: Level of Consciousness is awake, alert, obeys commands. Respiratory: Respiratory effort is even, unlabored. Derm: Skin is pink, warm & dry. 18:04 General: Appears in no apparent distress, comfortable, Behavior is appropriate for age, kc3 cooperative. Pain: Pain currently is 2 out of 10 on a pain scale. Neurological: Level of Consciousness is awake, alert, obeys commands, Oriented to person, place, time. Respiratory: Airway is patent Respiratory effort is even, unlabored. Derm: Skin is pink, warm & dry. 18:49 General: Pt resting on stretcher with no distress noted. Respirations even and kc3 unlabored. No complaints at this time. Pain remains at 2/10. Pt updated on plan of care. Call richard within reach. Will continue to monitor. . 19:39 General: Appears in no apparent distress, Behavior is cooperative, Reports of RLQ pain rs3 3/10. breathes easy. lung sounds clear. waiting on test results. 20:12 General: Appears in no apparent distress, Behavior is appropriate for age, cooperative. ld5 Pain: Pain currently is 3 out of 10 on a pain scale. Neurological: Level of Consciousness is awake, alert. Respiratory: Airway is patent Respiratory effort is even, unlabored. Vital Signs: 13:24 BP 142 / 72; Pulse 109; Resp 16; Temp 97.8; Pulse Ox 100% ; Weight 65.77 kg; Height 5 elp ft. 9 in. (175.26 cm); Pain 7/10; 15:36 Pain 2/10; kc3 15:53 BP 106 / 56; Pulse 67; Resp 18; Pulse Ox 98% on R/A; Pain 2/10; kc3 18:54 BP 125 / 65; Pulse 79; Resp 18; Temp 98.7(O); Pulse Ox 100% on R/A; Pain 2/10; jmv 20:12 BP 112 / 59; Pulse 81; Resp 16; Temp 97.9; Pulse Ox 100% on R/A; Pain 3/10; ld5 13:24 Body Mass Index 21.41 (65.77 kg, 175.26 cm) [facility] Vitals: 13:24 Log In Time: July 01, 2016 at 13:22. [facility] ED Course: 13:23 Patient visited by Maribell Younger PCA. elp 13:23 Patient moved to Waiting elp 13:24 AGAPITO Arellano is Private Physician. elp 13:25 Patient visited by Maribell Younger PCA. elp 13:25 Patient moved to Pre RCE elp 13:27 Triage Initiated ms18 13:41 Patient moved to Triage 3 ttb 13:44 The patient / caregiver is instructed regarding the plan of care and ED course. ttb Accompanied by Significant Other, Patient has correct armband on for positive identification. 13:46 Patient visited by Corina Luna RN. ttb 14:07 Patient visited by Lois William PCA. jb5 14:10 Garrick Angeles PA is PHCP. btw 14:10 Edmond Kelly MD is Attending Physician. btw 14:10 Patient visited by Garrick Angeles PA. btw 14:28 Patient moved to I5 / M5 kc3 14:30 Inserted saline lock: 20 gauge in left antecubital area and blood collected. The kc3 patient tolerated the procedure well. 14:41 UCG- In Lab Sent. srm 14:41 Amylase Sent. srm 14:41 Basic Metabolic Profile Sent. srm 14:41 CBC with Diff Sent. srm 14:41 Lipase Sent. srm 14:41 Liver Profile Sent. srm 14:46 Patient moved to Ultrasound sm5 15:01 Patient moved to I5 / M5 sm5 15:09 Patient visited by Shannan Sanchez RN. kc3 15:15 [facility] Payment Agreement was scanned into [employer] and attached to record. lg 15:34 Gallbladder US Returned. EDMS 15:50 Patient visited by Shannan Sanchez RN. kc3 16:21 Chest, 2 View (pa\E\lat) Returned. EDMS 16:39 Patient visited by Shannan Sanchez RN. kc3 17:13 Patient visited by Shannan Sanchez RN. kc3 17:48 Patient visited by Shannan Sanchez RN. kc3 18:02 PHCP role handed off by Garrick Angeles PA dt4 18:02 Anastasia Sierra PA-C is PHCP. dt4 18:03 Shannan Sanchez,LC is Primary Nurse. kc3 18:04 Patient visited by Shannan Sanchez RN. kc3 18:04 Type & Screen Sent. kc3 18:04 Lactic Acid (Lala tube on ice) Sent. kc3 18:10 Patient moved to Ultrasound hgl 18:38 Patient moved to I5 / M5 hgl 18:39 Patient visited by Shannan Sanchez RN. kc3 18:55 Patient visited by Francis Jennings PCA. jmv 19:38 Patient visited by Natalee Silverman,LC. rs3 19:40 CT ABD & PELVIS: IV and Oral Contrast Returned. EDMS 19:41 -US Pelvic Non-Ob Complete Returned. EDMS 19:55 Patient visited by Anastasia Sierra PA-C. dt4 19:56 Kendy Enriquez MD is Referral Physician. dt4 20:12 Discontinued lock intact, bleeding controlled, pressure dressing applied, No ld5 redness/swelling at site. No procedures done that require assistance. 20:14 Patient visited by Mireille Palafox RN. ld5 Administered Medications: 15:09 Drug: diphenhydrAMINE 50 mg [diphenhydramine 50 mg/mL injection solution (1 mL)] Route: kc3 IVP; Site: left antecubital; 15:36 Follow up: Pain 2/10 Adult kc3 15:10 Drug: NS 0.9% 1000 ml [sodium chloride 0.9 % intravenous solution] Route: IV; Rate: kc3 bolus; Site: left antecubital; 19:56 Follow up: IV Status: Completed infusion; IV Intake: 1000ml ld5 15:10 Drug: Metoclopramide 20 mg [metoclopramide 5 mg/mL injection solution] Route: IV; Rate: kc3 80 mg/hr; Infused Over: 15 mins; Site: left antecubital; 15:36 Follow up: IV Status: Completed infusion kc3 16:37 Drug: Diatrizoate Meglumine & Sodium 10 ml [diatrizoate meglumine and diat.sodium 66 kc3 %-10 % oral solution (10 mL)] Route: PO; 16:37 Drug: Diatrizoate Meglumine & Sodium 10 ml [diatrizoate meglumine and diat.sodium 66 kc3 %-10 % oral solution (10 mL)] Route: PO; 20:04 Drug: HYDROcodone-acetaminophen 4 pack- 1 packets [hydrocodone 5 mg-acetaminophen 325 ld5 mg tablet (1 tabs)] {Co-Signature: rs3 (Natalee Silverman RN).} Route: PO; 20:08 Follow up: Response: Med's dispensed home ld5 Intake: 19:56 IV: 1000.00ml; Total: 1000.00ml. ld5 Order Results: Lab Order: Amylase; SPEC'M 07/01/16 14:37 Test: AMYLASE; Value: 22; Range: 25-115; Abnormal: Below low normal; Units: U/L; Status: F Lab Order: Basic Metabolic Profile; [facility]' 07/01/16 14:37 Test: GLUCOSE, FASTING; Value: 90; Range: 70-105; Units: MG/DL; Status: F Test: BLOOD UREA NITROGEN; Value: 14; Range: 7-18; Units: MG/DL; Status: F Test: CREATININE FOR GFR; Value: 0.70; Range: 0.55-1.02; Units: MG/DL; Status: F Test: GLOMERULAR FILTRATION RATE; Value: > 60.0; Range: >60; Status: F Test: SODIUM LEVEL; Value: 140; Range: 136-145; Units: MEQ/L; Status: F Test: POTASSIUM SERUM; Value: 3.4; Range: 3.5-5.1; Abnormal: Below low normal; Units: MEQ/L; Status: F Test: CHLORIDE LEVEL; Value: 105; Range: 98-107; Units: MEQ/L; Status: F Test: CARBON DIOXIDE LEVEL; Value: 26; Range: 21-32; Units: MEQ/L; Status: F Test: ANION GAP; Value: 9; Range: 8-16; Units: MEQ/L; Status: F Test: CALCIUM LEVEL; Value: 9.4; Range: 8.5-10.1; Units: MG/DL; Status: F Test Note: ; Units are mL/min/1.73 m2 Chronic Kidney Disease Staging per NKF: Stage I & II GFR >=60 Normal to Mildly Decreased Stage III GFR 30-59 Moderately Decreased Stage IV GFR 15-29 Severely Decreased Stage V GFR <15 Very Little GFR Left ESRD GFR <15 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 Lab Order: CBC with Diff; SPEC'07/01/16 14:37 Test: WHITE BLOOD COUNT; Value: 6.9; Range: 4.0-10.0; Units: K/mm3; Status: F Test: RED BLOOD COUNT; Value: 3.72; Range: 4.00-5.40; Abnormal: Below low normal; Units: M/mm3; Status: F Test: HEMOGLOBIN; Value: 11.5; Range: 12.0-16.0; Abnormal: Below low normal; Units: g/dl; Status: F Test: HEMATOCRIT; Value: 34.1; Range: 36.0-47.0; Abnormal: Below low normal; Units: %; Status: F Test: MEAN CORPUSCULAR VOLUME; Value: 91.6; Range: 80.0-96.0; Units: fl; Status: F Test: MEAN CORPUSCULAR HEMOGLOBIN; Value: 30.9; Range: 27.0-33.0; Units: pg; Status: F Test: MEAN CORPUSCULAR HGB CONC; Value: 33.7; Range: 32.0-36.5; Units: g/dl; Status: F Test: RED CELL DISTRIBUTION WIDTH; Value: 11.9; Range: 11.5-14.5; Units: %; Status: F Test: PLATELET COUNT, AUTOMATED; Value: 221; Range: 150-450; Units: k/mm3; Status: F Test: NEUTROPHILS %; Value: 73.8; Range: 36.0-66.0; Abnormal: Above high normal; Units: %; Status: F Test: LYMPH %; Value: 19.0; Range: 24.0-44.0; Abnormal: Below low normal; Units: %; Status: F Test: MONO %; Value: 4.3; Range: 0.0-5.0; Units: %; Status: F Test: EOS %; Value: 1.8; Range: 0.0-3.0; Units: %; Status: F Test: BASO %; Value: 0.1; Range: 0.0-1.0; Units: %; Status: F Test: LARGE UNSTAINED CELL %; Value: 1.0; Range: 0.0-4.0; Units: %; Status: F Test: NEUTROPHILS #; Value: 5.1; Range: 1.8-7.7; Units: K/mm3; Status: F Test: LYMPH #; Value: 1.3; Range: 1.5-6.5; Abnormal: Below low normal; Units: K/mm3; Status: F Test: MONO #; Value: 0.3; Range: 0.0-0.8; Units: K/mm3; Status: F Test: EOS #; Value: 0.1; Range: 0.0-0.50; Units: K/mm3; Status: F Test: BASO #; Value: 0.0; Range: 0.0-0.2; Units: K/mm3; Status: F Test: LARGE UNSTAINED CELL #; Value: 0.1; Range: 0.0-0.4; Units: K/mm3; Status: F Lab Order: Lipase; [facility] 07/01/16 14:37 Test: LIPASE; Value: 87; Range: 73-393; Units: U/L; Status: F Lab Order: Liver Profile; [facility] 07/01/16 14:37 Test: AST/SGOT; Value: 12; Range: 15-37; Abnormal: Below low normal; Units: U/L; Status: F Test: ALT/SGPT; Value: 20; Range: 12-78; Units: U/L; Status: F Test: ALKALINE PHOSPHATASE; Value: 75; Range: 45-117; Units: U/L; Status: F Test: BILIRUBIN,TOTAL; Value: 0.6; Range: 0.2-1.0; Units: MG/DL; Status: F Test: BILIRUBIN,DIRECT; Value: 0.1; Range: 0.0-0.2; Units: MG/DL; Status: F Test: TOTAL PROTEIN; Value: 7.7; Range: 6.4-8.2; Units: GM/DL; Status: F Test: ALBUMIN; Value: 4.3; Range: 3.2-5.2; Units: GM/DL; Status: F Test: ALBUMIN/GLOBULIN RATIO; Value: 1.26; Range: 1.00-1.93; Status: F Lab Order: Urinalysis; [facility] 07/01/16 14:27 Test: APPEARANCE, URINE; Value: CLEAR; Range: CLEAR; Status: F Test: COLOR, URINE; Value: YELLOW; Range: YELLOW; Status: F Test: PH,URINE; Value: 5.0; Range: 5.0-9.0; Units: UNITS; Status: F Test: SPECIFIC GRAVITY URINE AUTO; Value: 1.016; Range: 1.002-1.035; Status: F Test: PROTEIN, URINE AUTO; Value: NEGATIVE; Range: NEGATIVE; Units: mg/dL; Status: F Test: GLUCOSE, URINE (UA) AUTO; Value: NEGATIVE; Range: NEGATIVE; Units: mg/dL; Status: F Test: KETONE, URINE AUTO; Value: NEGATIVE; Range: NEGATIVE; Units: mg/dL; Status: F Test: UROBILINOGEN, URINE AUTO; Value: 0.2; Range: 0.0-2.0; Units: mg/dL; Status: F Test: BILIRUBIN, URINE AUTO; Value: NEGATIVE; Range: NEGATIVE; Status: F Test: NITRITE, URINE AUTO; Value: NEGATIVE; Range: NEGATIVE; Status: F Test: LEUKOCYTE ESTERASE, URINE AUTO; Value: NEGATIVE; Range: NEGATIVE; Status: F Test: BLOOD, URINE BLOOD; Value: NEGATIVE; Range: NEGATIVE; Status: F Test: WBC, URINE AUTO; Value: 1; Range: 0-3; Units: /HPF; Status: F Test: RBC, URINE AUTO; Value: 0; Range: 0-3; Units: /HPF; Status: F Test: BACTERIA, URINE AUTO; Value: NEGATIVE; Range: NEGATIVE; Status: F Test: SQUAMOUS EPITHELIAL CELL UR AU; Value: 1; Range: 0-6; Units: /HPF; Status: F Test: MUCUS, URINE; Value: SMALL; Range: NEGATIVE; Status: F Test: HYALINE CAST, URINE AUTO; Value: 0; Range: 0-1; Units: /LPF; Status: F Lab Order: UCG- In Lab; [facility] 07/01/16 14:27 Test: URINE PREG TEST; Value: NEGATIVE; Range: NEGATIVE; Status: F Lab Order: Lactic Acid (Lala tube on ice); [facility] 07/01/16 18:02 Test: LACTIC ACID SEPSIS PROTOCOL; Value: 0.9; Range: 0.4-2.0; Units: MMOL/L; Status: F Lab Order: Type & Screen; [facility] 07/01/16 18:02 Test: BLOOD TYPE; Value: A POS; Status: F Test: AB SCREEN (INDIRECT HIREN)GEL; Value: NEGATIVE; Status: F Lab Order: HCG, SERUM QUANTITATIVE; [facility] 07/01/16 14:37 Test: HCG, SERUM QUANTITATIVE; Value: < 1.0; Units: MIU/ML; Status: F Test Note: ; GESTATIONAL AGE APPROXIMATE HCG RANGE (MIU/ML) 0.2-1 WEEK 5-50 1-2 WEEKS 50-500 2-3 WEEKS 100-5,000 3-4 WEEKS 500-10,000 4-5 WEEKS 1,000-50,000 5-6 WEEKS 10,000-100,000 6-8 WEEKS 15,000-200,000 2-3 MONTHS 10,000-100,000 NON FEMALES LESS THAN 3.0 Patient samples may contain human heterophilic antibodies that could react with immunoassays to give falsely elevated or depressed results. This assay has been designed to minimize interference from heterophilic antibodies. Elevated hCG levels have also been associated with trophoblastic disease and nontrophoblastic neoplasms. The possibility of having these diseases should be considered before a diagnosis of is made. This test is not intended for use as a surrogate marker for aiding in the diagnosis or monitoring the treatment of cancer patients. Cartour methodology. Radiology Order: Gallbladder US Test: Gallbladder US REASON FOR EXAMINATION: Biliary Colic; RIGHT UPPER QUADRANT ULTRASOUND:; ; Real-time sonographic evaluation of the right upper quadrant performed.; ; The gallbladder demonstrates no evidence of intraluminal sludge or calculi, wall; thickening or pericholecystic fluid. There is no intrahepatic or extrahepatic; biliary dilatation, the common bile duct measuring 5 mm in diameter. Liver and; pancreas demonstrate homogeneous echotexture with no gross mass. The right kidney; dimensions no hydronephrosis or nephrolithiasis with normal size at 12.1 cm in; length.; ; IMPRESSION:; ; Negative right upper quadrant ultrasound.; ; ; Signed by; Thanh Lala MD 07/01/2016 04:47 P; Radiology Order: CT ABD & PELVIS: IV and Oral Contrast Test: CT ABD & PELVIS: IV and Oral Contrast REASON FOR EXAMINATION: Abdomen Pain; CT study of the abdomen and pelvis with IV and oral contrast:; ; History: Abdominal pain.; ; Comparison CT study: 09/13/2014.; ; CT contrast dose: 100 mL of Isovue-370 is administered intravenously.; ; CT findings: Preliminary digital targeting acquisition officer radiograph of the abdomen demonstrates an; unremarkable bowel gas pattern. The lung bases show no evidence of infiltrate or; pleural effusion.; ; The liver and the spleen are normal in size homogeneous in texture. No adrenal; lesion is seen. Pancreas shows no abnormality. The kidneys enhance; symmetrically and are morphologically intact.; ; Ascites is visible in the upper abdomen in the perihepatic and perisplenic region; and extending along the pericolic gutters. In the pelvis there is moderate; fairly high density ascites filling the cul-de-sac consistent with peritoneal; hemorrhage. There is a cystic mass in the right adnexa measuring 4.5 cm in; greatest diameter. No uterine abnormality is observed. Urinary bladder is; intact. Small and large intestinal bowel loops are unremarkable.; ; Impression:; ; Findings compatible with moderate hemoperitoneum. This combined with a 4.5 cm; cystic mass in the right adnexa raises a question of ectopic with; rupture in this age group.; ; Findings were telephoned to the referring provider in the ED at the time of this; dictation.; ; ; ; Unreviewed; Radiology Order: Chest, 2 View (pa\E\lat) Test: Chest, 2 View (pa\E\lat) REASON FOR EXAMINATION: Chest Pain; Chest x-ray: Two views.; ; History: Chest pain. .; ; Comparison study: January 28, 2015 .; ; Findings: The lungs are well inflated and free of infiltrate. The pleural; angles are sharp. The heart size is normal. Pulmonary vasculature is not; increased. No significant bony abnormality is seen.; ; Impression:; ; Negative chest x-ray.; ; ; Signed by; James Munoz MD 07/01/2016 03:53 P; Radiology Order: -US Pelvic Non-Ob Complete Test: -US Pelvic Non-Ob Complete REASON FOR EXAMINATION: Adnexal Pain r/o Torsion; ; CLINICAL HISTORY: History of ovarian cyst. Subseptate uterus.; ; TECHNIQUE: Realtime sonographic images were obtained in multiple projections.; ; FINDINGS:; There is a subseptate uterus that is anteverted measuring 7.62 x 3.58 x 5.11 cm. The endometrial ech; o pattern is within normal limits measuring 8.7 mm on the right and 7.6 mm on the left.; ; There is a moderate amount of blood seen in the cul-de-sac. There is a trace amount of free fluid see; n in Lerma's pouch.; ; The right ovary measures 5.05 x 4.35 x 4.85 cm with a hemorrhagic cyst measuring 4.17 x 3.85 x 3.62 c; m. The left ovary measures 2.8 x 2.3 x 2.4 cm.; ; There is no evidence for abnormal vascularity.; ; The bladder measures 9.54 x 6.14 x 0.92 cm.; ; IMPRESSION:; 1. Subseptate uterus.; 2. Moderate amount of blood in the cul-de-sac. Trace free fluid in Lerma's pouch.; 3. 4 cm right ovarian hemorrhagic cyst. Consider follow-up study in one to 2 menstrual cycles.; ; Thank you for your kind referral of this patient. We appreciate the opportunity to participate in thi; s patient's care.; ; ; ; Outcome: 17:40 CT Study completed. kc3 19:57 Discharge ordered by Provider. dt4 20:12 Discharge Assessment: Patient awake, alert and oriented x 3. No cognitive and/or ld5 functional deficits noted. Patient verbalized understanding of disposition instructions. patient administered narcotics - yes. Pt provided with safe discharge. The following High Risk Discharge criteria are identified: None. Discharged to home ambulatory, with significant other. Condition: stable. Discharge instructions given to patient, significant other, Instructed on discharge instructions, follow up and referral plans. medication usage, no driving heavy equipment, Demonstrated understanding of instructions, medications, Pt was receptive of discharge instructions/ teaching. Prescriptions given X 1. Ultrasound Study completed. Property :Personal belongings accompany Pt. 20:14 Patient left the ED. ld5 Signatures: Dispatcher [employer] EDMS Adilene Mccall, LC PLATT [facility] Jaxon Eldridge, Reg Reg lg Harleen Noe sm5 Lois William, LOCKSTITCH ZIPPER SETTER LOCKSTITCH ZIPPER SETTER jb5 Natalee Silverman RN RN rs3 Garrick Angeles PA PA btw Dickerson, Laura, RN RN ld5 Mike Allison Teresa, RN RN ttb Maribell Younger, LOCKSTITCH ZIPPER SETTER LOCKSTITCH ZIPPER SETTER elp Anastasia Sierra, PA-C PA-C dt4 Corinna Anglin RN RN ms18 Shannan Sanchez RN RN kc3 Francis Jennings, LOCKSTITCH ZIPPER SETTER LOCKSTITCH ZIPPER SETTER jmv Natalee Silverman RN rs3 Corrections: (The following items were deleted from the chart) 18:07 18:04 HCG, SERUM QUANTITATIVE+LAB sent. kc3 EDMS MTDD
--- NOTE | 2016-07-03 21:14 | EDDOCDS ---
Physician Documentation [facility] Name: Karyna Villatoro Age: 21 yrs Sex: Female : 1995 Arrival Date: 07/01/2016 Time: 13:22 Bed I5 / M5 Private MD: Eileen [facility] [place] Disposition: 07/01/16 19:57 Discharged to Home/Self Care. Impression: Upper abdominal pain, unspecified - RUQ, Hemoperitoneum, Other ovarian cysts - RIGHT, 4.5CM HEMORRHAGIC. - Condition is Stable. - Discharge Instructions: Ovarian Cyst, Abdominal Pain, Women. - Prescriptions for [place] 5- 325 mg Oral Tablet - take 1 tablet by ORAL route every 6 hours As needed MDD: 4 tabs; 15 tablet. - Medication Reconciliation, Local Pharmacy Hours form. - Follow up: Emergency Department; When: As needed; Reason: Worsening of conditions. Follow up: Kendy Geller MD; When: Call to arrange an appointment; Reason: Wound/Symptom Recheck, Recheck today's complaints, Continuance of care. - Problem is new. - Symptoms have improved. Historical: - Allergies: no known allergies; - Home Meds: 1. meloxicam 15 mg oral tab 1 tab once daily 2. 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 No barriers to communication noted, The patient speaks fluent Armenian. - Family history: Not pertinent. - : The pt / caregiver states he / she is not on anticoagulants. Home medication list is obtained from the patient. - Exposure Risk Screening:: None identified. 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 9 in. (175.26 cm); Pain 7/10; 15:36 Pain 2/10; kc3 15:53 BP 106 / 56; Pulse 67; Resp 18; Pulse Ox 98% on R/A; Pain 2/10; kc3 18:54 BP 125 / 65; Pulse 79; Resp 18; Temp 98.7(O); Pulse Ox 100% on R/A; Pain 2/10; jmv 20:12 BP 112 / 59; Pulse 81; Resp 16; Temp 97.9; Pulse Ox 100% on R/A; Pain 3/10; ld5 13:24 Body Mass Index 21.41 (65.77 kg, 175.26 cm) elp MDM: 14:22 NS 0.9% 1000 ml IV at bolus once ordered. btw 14:22 IV Saline Lock ordered. btw 14:22 Undress patient appropriately for examination ordered. btw 14:22 Metoclopramide 20 mg IV at 80 mg/hr once over 15 mins ordered. btw 14:22 diphenhydrAMINE 50 mg IVP once ordered. btw 14:23 Amylase Ordered. EDMS 14:23 Basic Metabolic Profile Ordered. EDMS 14:23 CBC with Diff Ordered. EDMS 14:23 Lipase Ordered. EDMS 14:23 Liver Profile Ordered. EDMS 14:23 Urinalysis Ordered. EDMS 14:23 Urine Culture Ordered. EDMS 14:23 Gallbladder US Ordered. EDMS 14:24 NOTHING BY MOUTH+DIET ordered. EDMS 14:25 UCG by Nursing ordered. btw 14:41 UCG- In Lab Ordered. EDMS 14:43 Financial registration complete. lg 15:15 [facility] Payment Agreement was scanned into Loopback and attached to record. lg 15:31 Amylase Reviewed. btw 15:31 Basic Metabolic Profile Reviewed. btw 15:31 CBC with Diff Reviewed. btw 15:31 Liver Profile Reviewed. btw 15:31 Lipase Reviewed. btw 15:31 Urinalysis Reviewed. btw 15:31 UCG- In Lab Reviewed. btw 15:35 Chest, 2 View (pa\E\lat) Ordered. EDMS 15:35 CT ABD & PELVIS: IV and Oral Contrast Ordered. EDMS 16:36 Diatrizoate Meglumine & Sodium Liquid 10 ml PO once; mix in 290cc of water ordered. kc3 16:36 Diatrizoate Meglumine & Sodium Liquid 10 ml PO once; mix in 290cc of water give at 1625 kc3 ordered. 17:55 Gallbladder US Reviewed. btw 17:55 Chest, 2 View (pa\E\lat) Reviewed. btw 17:55 -US Pelvic Non-Ob Complete Ordered. EDMS 17:55 DUPLEX SCAN LIMITED (DOPPLER)+US Ordered. EDMS 17:56 Lactic Acid (Lala tube on ice) Ordered. EDMS 17:56 Type & Screen Ordered. EDMS 18:01 Transvaginal NON- US Ordered. EDMS 18:07 HCG, SERUM QUANTITATIVE Ordered. EDMS 18:17 BED REQUEST+ADM ordered. EDMS 19:46 ED course: SPOKE WITH DR. MARTINEZ. ADVISED MOST LIKELY NOT SURGICAL. CALLED AND SPOKE dt4 WITH DR. GELLER AND ADVISED PAIN MEDICATION, SEND HOME AND WILL FOLLOW UP IN OFFICE. . 19:57 HYDROcodone-acetaminophen 4 pack- 5 mg-325 mg 1 packets PO Per package directions; dt4 Dispense with patient. 1 po q4h prn for pain ordered. 0204 10:31 [facility] Payment Agreement was scanned into Loopback and attached to record. mm15 17:46 Radiology Report was scanned into Loopback and attached to record. kf3 Administered Medications: 07/01 15:09 Drug: diphenhydrAMINE 50 mg [diphenhydramine 50 mg/mL injection solution (1 mL)] Route: kc3 IVP; Site: left antecubital; 15:36 Follow up: Pain 2/10 Adult kc3 15:10 Drug: NS 0.9% 1000 ml [sodium chloride 0.9 % intravenous solution] Route: IV; Rate: kc3 bolus; Site: left antecubital; 19:56 Follow up: IV Status: Completed infusion; IV Intake: 1000ml ld5 15:10 Drug: Metoclopramide 20 mg [metoclopramide 5 mg/mL injection solution] Route: IV; Rate: kc3 80 mg/hr; Infused Over: 15 mins; Site: left antecubital; 15:36 Follow up: IV Status: Completed infusion kc3 16:37 Drug: Diatrizoate Meglumine & Sodium 10 ml [diatrizoate meglumine and diat.sodium 66 kc3 %-10 % oral solution (10 mL)] Route: PO; 16:37 Drug: Diatrizoate Meglumine & Sodium 10 ml [diatrizoate meglumine and diat.sodium 66 kc3 %-10 % oral solution (10 mL)] Route: PO; 20:04 Drug: HYDROcodone-acetaminophen 4 pack- 1 packets [hydrocodone 5 mg-acetaminophen 325 ld5 mg tablet (1 tabs)] {Co-Signature: rs3 (Natalee Silverman RN).} Route: PO; 20:08 Follow up: Response: Med's dispensed home ld5 Signatures: Dispatcher [employer] EDMS CassieJaxon silver, Reg Reg lg Logan Verduzco, Reg Reg kf3 Garrick Angeles PA PA btw Dickerson, LauraRN RN ld5 Corina Luna RN RN ttb Jaja Valenzuela mm15 Anastasia Sierra PA-C PA-Hansa cruz4 Corinna Anglin RN RN ms18 Shannan Sanchez RN RN kc3 Natalee Silverman RN rs3 The chart was reviewed and I authenticate all verbal orders and agree with the evaluation and treatment provided.Corrections: (The following items were deleted from the chart) 18:07 17:59 HCG, SERUM QUANTITATIVE+LAB ordered. EDMS EDMS Attachments: 15:15 [facility] [place] Payment Agreement lg 07/02 10:31 [facility] Payment Agreement mm15 Chart Complete MTDD
--- NOTE | 2016-07-03 21:15 | EDDOCDS ---
Nurse's Notes [facility] Name: Karyna Villatoro Age: 21 yrs Sex: Female : 1995 Arrival Date: 07/01/2016 Time: 13:22 Bed I5 / M5 Private MD: AGAPITO Arellano Diagnosis: Upper abdominal pain, unspecified-RUQ;Hemoperitoneum;Other ovarian cysts-RIGHT, 4.5CM HEMORRHAGIC Presentation: 07/01 13:26 Presenting complaint: Patient states: that she started to have SOB last night. Pt ms18 states that the R side of her chest hurts when she lays down. Adult Sepsis Screening: The patient does not have new or worsening altered mentation. Patient's respiratory rate is less than 22. Systolic blood pressure is greater than 100. Patient has a qSOFA score of 0- Negative Sepsis Screen. Suicide/Homicide risk assessment- the patient denies having any suicidal and/or homicidal ideations and does not present with any other emotional, behavioral or mental health complaints. Status: The patient is a dependent. Transition of care: patient was not received from another setting of care. 13:26 Acuity: DENZEL Level 3 ms18 13:26 Method Of Arrival: Walkin/Carried/Asstd ms18 Triage Assessment: 13:28 General: Appears in no apparent distress, comfortable, slender, Behavior is appropriate ms18 for age, cooperative. Pain: Location: anterior aspect of right upper chest and diaphragm Pain currently is 7 out of 10 on a pain scale. HIV screening NA for this visit Offered previously. Neurological: No deficits noted. Respiratory: Onset: The symptoms/episode began/occurred yesterday, Airway is patent Respiratory effort is even, unlabored, Respiratory pattern is regular, symmetrical, Denies cough. Derm: Skin is pink, warm & dry. 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 meloxicam 15 mg oral tab 1 tab once daily 2. 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 No barriers to communication noted, The patient speaks fluent Liberian. - Family history: Not pertinent. - : The pt / caregiver states he / she is not on anticoagulants. Home medication list is obtained from the patient. - Exposure Risk Screening:: None identified. Screenin:44 Screening information is obtained from the patient. Fall risk: No risks identified. ttb Assistance ADL's: requires no assistance with activities of daily living. Abuse/DV Screen: The patient / caregiver reports he/she is: not in a situation that causes fear, pain or injury. Nutritional screening: No deficits noted. Advance Directives: Currently, there is no health care proxy. home support is adequate. Assessment: 13:44 General: Appears in no apparent distress, well nourished, well groomed, Behavior is ttb appropriate for age, cooperative, pleasant. Neurological: Level of Consciousness is awake, alert. Cardiovascular: Chest pain is denied Reports pain with respiration to right chest and epigastric area. Respiratory: Airway is patent Respiratory effort is even, Respiratory pattern is regular, symmetrical, Breath sounds are clear bilaterally. Reports pain with respiration the patient has mild shortness of breath. GI: Reports lower abdominal pain, upper abd pain, nausea. : Reports burning with urination since last night after intercourse. Derm: Skin is normal. Injury Description: pain started last night around 10pm after intercourse.... 14:50 General: Appears in no apparent distress, comfortable, Behavior is appropriate for age, kc3 cooperative. Pain: Pain currently is 2 out of 10 on a pain scale. Neurological: No deficits noted. Respiratory: Respiratory effort is even, unlabored. Derm: Skin is pink, warm & dry. 15:53 General: Appears in no apparent distress, comfortable, Behavior is appropriate for age, kc3 cooperative. Neurological: Level of Consciousness is awake, alert, obeys commands. Respiratory: Airway is patent Respiratory effort is even, unlabored. Derm: Skin is pink, warm & dry. 16:45 General: Appears in no apparent distress, comfortable. Pain: Pain currently is 2 out of kc3 10 on a pain scale. Neurological: Level of Consciousness is awake, alert, obeys commands. Respiratory: Respiratory effort is even, unlabored. Derm: Skin is pink, warm & dry. 18:04 General: Appears in no apparent distress, comfortable, Behavior is appropriate for age, kc3 cooperative. Pain: Pain currently is 2 out of 10 on a pain scale. Neurological: Level of Consciousness is awake, alert, obeys commands, Oriented to person, place, time. Respiratory: Airway is patent Respiratory effort is even, unlabored. Derm: Skin is pink, warm & dry. 18:49 General: Pt resting on stretcher with no distress noted. Respirations even and kc3 unlabored. No complaints at this time. Pain remains at 2/10. Pt updated on plan of care. Call richard within reach. Will continue to monitor. . 19:39 General: Appears in no apparent distress, Behavior is cooperative, Reports of RLQ pain rs3 3/10. breathes easy. lung sounds clear. waiting on test results. 20:12 General: Appears in no apparent distress, Behavior is appropriate for age, cooperative. ld5 Pain: Pain currently is 3 out of 10 on a pain scale. Neurological: Level of Consciousness is awake, alert. Respiratory: Airway is patent Respiratory effort is even, unlabored. Vital Signs: 13:24 BP 142 / 72; Pulse 109; Resp 16; Temp 97.8; Pulse Ox 100% ; Weight 65.77 kg; Height 5 elp ft. 9 in. (175.26 cm); Pain 7/10; 15:36 Pain 2/10; kc3 15:53 BP 106 / 56; Pulse 67; Resp 18; Pulse Ox 98% on R/A; Pain 2/10; kc3 18:54 BP 125 / 65; Pulse 79; Resp 18; Temp 98.7(O); Pulse Ox 100% on R/A; Pain 2/10; jmv 20:12 BP 112 / 59; Pulse 81; Resp 16; Temp 97.9; Pulse Ox 100% on R/A; Pain 3/10; ld5 13:24 Body Mass Index 21.41 (65.77 kg, 175.26 cm) [facility] Vitals: 13:24 Log In Time: July 01, 2016 at 13:22. [facility] ED Course: 13:23 Patient visited by Maribell Younger PCA. elp 13:23 Patient moved to Waiting elp 13:24 AGAPITO Arellano is Private Physician. elp 13:25 Patient visited by Maribell Younger PCA. elp 13:25 Patient moved to Pre RCE elp 13:27 Triage Initiated ms18 13:41 Patient moved to Triage 3 ttb 13:44 The patient / caregiver is instructed regarding the plan of care and ED course. ttb Accompanied by Significant Other, Patient has correct armband on for positive identification. 13:46 Patient visited by Corina Luna RN. ttb 14:07 Patient visited by Lois William PCA. jb5 14:10 Garrick Angeles PA is PHCP. btw 14:10 Edmond Kelly MD is Attending Physician. btw 14:10 Patient visited by Garrick Angeles PA. btw 14:28 Patient moved to I5 / M5 kc3 14:30 Inserted saline lock: 20 gauge in left antecubital area and blood collected. The kc3 patient tolerated the procedure well. 14:41 UCG- In Lab Sent. srm 14:41 Amylase Sent. srm 14:41 Basic Metabolic Profile Sent. srm 14:41 CBC with Diff Sent. srm 14:41 Lipase Sent. srm 14:41 Liver Profile Sent. srm 14:46 Patient moved to Ultrasound sm5 15:01 Patient moved to I5 / M5 sm5 15:09 Patient visited by Shannan Sanchez RN. kc3 15:15 [facility] Payment Agreement was scanned into [employer] and attached to record. lg 15:34 Gallbladder US Returned. EDMS 15:50 Patient visited by Shannan Sanchez RN. kc3 16:21 Chest, 2 View (pa\E\lat) Returned. EDMS 16:39 Patient visited by Shannan Sanchez RN. kc3 17:13 Patient visited by Shannan Sanchez RN. kc3 17:48 Patient visited by Shannan Sanchez RN. kc3 18:02 PHCP role handed off by Garrick Angeles PA dt4 18:02 Anastasia Sierra PA-C is PHCP. dt4 18:03 Shannan Sanchez,LC is Primary Nurse. kc3 18:04 Patient visited by Shannan Sanchez RN. kc3 18:04 Type & Screen Sent. kc3 18:04 Lactic Acid (Lala tube on ice) Sent. kc3 18:10 Patient moved to Ultrasound hgl 18:38 Patient moved to I5 / M5 hgl 18:39 Patient visited by Shannan Sanchez RN. kc3 18:55 Patient visited by Francis Jennings PCA. jmv 19:38 Patient visited by Natalee Silverman,LC. rs3 19:40 CT ABD & PELVIS: IV and Oral Contrast Returned. EDMS 19:41 -US Pelvic Non-Ob Complete Returned. EDMS 19:55 Patient visited by Anastasia Sierra PA-C. dt4 19:56 Kendy Enriquez MD is Referral Physician. dt4 20:12 Discontinued lock intact, bleeding controlled, pressure dressing applied, No ld5 redness/swelling at site. No procedures done that require assistance. 20:14 Patient visited by Mireille Palafox RN. ld5 07/02 10:31 [facility] Payment Agreement was scanned into [employer] and attached to record. mm15 17:46 Radiology Report was scanned into [employer] and attached to record. kf3 Administered Medications: 07/01 15:09 Drug: diphenhydrAMINE 50 mg [diphenhydramine 50 mg/mL injection solution (1 mL)] Route: kc3 IVP; Site: left antecubital; 15:36 Follow up: Pain 2/10 Adult kc3 15:10 Drug: NS 0.9% 1000 ml [sodium chloride 0.9 % intravenous solution] Route: IV; Rate: kc3 bolus; Site: left antecubital; 19:56 Follow up: IV Status: Completed infusion; IV Intake: 1000ml ld5 15:10 Drug: Metoclopramide 20 mg [metoclopramide 5 mg/mL injection solution] Route: IV; Rate: kc3 80 mg/hr; Infused Over: 15 mins; Site: left antecubital; 15:36 Follow up: IV Status: Completed infusion kc3 16:37 Drug: Diatrizoate Meglumine & Sodium 10 ml [diatrizoate meglumine and diat.sodium 66 kc3 %-10 % oral solution (10 mL)] Route: PO; 16:37 Drug: Diatrizoate Meglumine & Sodium 10 ml [diatrizoate meglumine and diat.sodium 66 kc3 %-10 % oral solution (10 mL)] Route: PO; 20:04 Drug: HYDROcodone-acetaminophen 4 pack- 1 packets [hydrocodone 5 mg-acetaminophen 325 ld5 mg tablet (1 tabs)] {Co-Signature: rs3 (Natalee Silverman RN).} Route: PO; 20:08 Follow up: Response: Med's dispensed home ld5 Intake: 19:56 IV: 1000.00ml; Total: 1000.00ml. ld5 Order Results: Lab Order: Amylase; SPEC'M 07/01/16 14:37 Test: AMYLASE; Value: 22; Range: 25-115; Abnormal: Below low normal; Units: U/L; Status: F Lab Order: Basic Metabolic Profile; SPEC' 07/01/16 14:37 Test: GLUCOSE, FASTING; Value: 90; Range: 70-105; Units: MG/DL; Status: F Test: BLOOD UREA NITROGEN; Value: 14; Range: 7-18; Units: MG/DL; Status: F Test: CREATININE FOR GFR; Value: 0.70; Range: 0.55-1.02; Units: MG/DL; Status: F Test: GLOMERULAR FILTRATION RATE; Value: > 60.0; Range: >60; Status: F Test: SODIUM LEVEL; Value: 140; Range: 136-145; Units: MEQ/L; Status: F Test: POTASSIUM SERUM; Value: 3.4; Range: 3.5-5.1; Abnormal: Below low normal; Units: MEQ/L; Status: F Test: CHLORIDE LEVEL; Value: 105; Range: 98-107; Units: MEQ/L; Status: F Test: CARBON DIOXIDE LEVEL; Value: 26; Range: 21-32; Units: MEQ/L; Status: F Test: ANION GAP; Value: 9; Range: 8-16; Units: MEQ/L; Status: F Test: CALCIUM LEVEL; Value: 9.4; Range: 8.5-10.1; Units: MG/DL; Status: F Test Note: ; Units are mL/min/1.73 m2 Chronic Kidney Disease Staging per NKF: Stage I & II GFR >=60 Normal to Mildly Decreased Stage III GFR 30-59 Moderately Decreased Stage IV GFR 15-29 Severely Decreased Stage V GFR <15 Very Little GFR Left ESRD GFR <15 on RECEPTIONIST/TELEPHONE OPERATOR Lab Order: CBC with Diff; SPEC'M 07/01/16 14:37 Test: WHITE BLOOD COUNT; Value: 6.9; Range: 4.0-10.0; Units: K/mm3; Status: F Test: RED BLOOD COUNT; Value: 3.72; Range: 4.00-5.40; Abnormal: Below low normal; Units: M/mm3; Status: F Test: HEMOGLOBIN; Value: 11.5; Range: 12.0-16.0; Abnormal: Below low normal; Units: g/dl; Status: F Test: HEMATOCRIT; Value: 34.1; Range: 36.0-47.0; Abnormal: Below low normal; Units: %; Status: F Test: MEAN CORPUSCULAR VOLUME; Value: 91.6; Range: 80.0-96.0; Units: fl; Status: F Test: MEAN CORPUSCULAR HEMOGLOBIN; Value: 30.9; Range: 27.0-33.0; Units: pg; Status: F Test: MEAN CORPUSCULAR HGB CONC; Value: 33.7; Range: 32.0-36.5; Units: g/dl; Status: F Test: RED CELL DISTRIBUTION WIDTH; Value: 11.9; Range: 11.5-14.5; Units: %; Status: F Test: PLATELET COUNT, AUTOMATED; Value: 221; Range: 150-450; Units: k/mm3; Status: F Test: NEUTROPHILS %; Value: 73.8; Range: 36.0-66.0; Abnormal: Above high normal; Units: %; Status: F Test: LYMPH %; Value: 19.0; Range: 24.0-44.0; Abnormal: Below low normal; Units: %; Status: F Test: MONO %; Value: 4.3; Range: 0.0-5.0; Units: %; Status: F Test: EOS %; Value: 1.8; Range: 0.0-3.0; Units: %; Status: F Test: BASO %; Value: 0.1; Range: 0.0-1.0; Units: %; Status: F Test: LARGE UNSTAINED CELL %; Value: 1.0; Range: 0.0-4.0; Units: %; Status: F Test: NEUTROPHILS #; Value: 5.1; Range: 1.8-7.7; Units: K/mm3; Status: F Test: LYMPH #; Value: 1.3; Range: 1.5-6.5; Abnormal: Below low normal; Units: K/mm3; Status: F Test: MONO #; Value: 0.3; Range: 0.0-0.8; Units: K/mm3; Status: F Test: EOS #; Value: 0.1; Range: 0.0-0.50; Units: K/mm3; Status: F Test: BASO #; Value: 0.0; Range: 0.0-0.2; Units: K/mm3; Status: F Test: LARGE UNSTAINED CELL #; Value: 0.1; Range: 0.0-0.4; Units: K/mm3; Status: F Lab Order: Lipase; [facility]' 07/01/16 14:37 Test: LIPASE; Value: 87; Range: 73-393; Units: U/L; Status: F Lab Order: Liver Profile; [facility] 07/01/16 14:37 Test: AST/SGOT; Value: 12; Range: 15-37; Abnormal: Below low normal; Units: U/L; Status: F Test: ALT/SGPT; Value: 20; Range: 12-78; Units: U/L; Status: F Test: ALKALINE PHOSPHATASE; Value: 75; Range: 45-117; Units: U/L; Status: F Test: BILIRUBIN,TOTAL; Value: 0.6; Range: 0.2-1.0; Units: MG/DL; Status: F Test: BILIRUBIN,DIRECT; Value: 0.1; Range: 0.0-0.2; Units: MG/DL; Status: F Test: TOTAL PROTEIN; Value: 7.7; Range: 6.4-8.2; Units: GM/DL; Status: F Test: ALBUMIN; Value: 4.3; Range: 3.2-5.2; Units: GM/DL; Status: F Test: ALBUMIN/GLOBULIN RATIO; Value: 1.26; Range: 1.00-1.93; Status: F Lab Order: Urinalysis; [facility] 07/01/16 14:27 Test: APPEARANCE, URINE; Value: CLEAR; Range: CLEAR; Status: F Test: COLOR, URINE; Value: YELLOW; Range: YELLOW; Status: F Test: PH,URINE; Value: 5.0; Range: 5.0-9.0; Units: UNITS; Status: F Test: SPECIFIC GRAVITY URINE AUTO; Value: 1.016; Range: 1.002-1.035; Status: F Test: PROTEIN, URINE AUTO; Value: NEGATIVE; Range: NEGATIVE; Units: mg/dL; Status: F Test: GLUCOSE, URINE (UA) AUTO; Value: NEGATIVE; Range: NEGATIVE; Units: mg/dL; Status: F Test: KETONE, URINE AUTO; Value: NEGATIVE; Range: NEGATIVE; Units: mg/dL; Status: F Test: UROBILINOGEN, URINE AUTO; Value: 0.2; Range: 0.0-2.0; Units: mg/dL; Status: F Test: BILIRUBIN, URINE AUTO; Value: NEGATIVE; Range: NEGATIVE; Status: F Test: NITRITE, URINE AUTO; Value: NEGATIVE; Range: NEGATIVE; Status: F Test: LEUKOCYTE ESTERASE, URINE AUTO; Value: NEGATIVE; Range: NEGATIVE; Status: F Test: BLOOD, URINE BLOOD; Value: NEGATIVE; Range: NEGATIVE; Status: F Test: WBC, URINE AUTO; Value: 1; Range: 0-3; Units: /HPF; Status: F Test: RBC, URINE AUTO; Value: 0; Range: 0-3; Units: /HPF; Status: F Test: BACTERIA, URINE AUTO; Value: NEGATIVE; Range: NEGATIVE; Status: F Test: SQUAMOUS EPITHELIAL CELL UR AU; Value: 1; Range: 0-6; Units: /HPF; Status: F Test: MUCUS, URINE; Value: SMALL; Range: NEGATIVE; Status: F Test: HYALINE CAST, URINE AUTO; Value: 0; Range: 0-1; Units: /LPF; Status: F Lab Order: Urine Culture; SPEC'M 07/01/16 14:27 Test: URINE CULTURE; Value: <EXTERNAL COMMENT eCWMed> FULL REPORT IN LAB NOTES (eCW and [employer]).; Status: F Test: URINE CULTURE; Value: URINE CULTURE RESULT NO GROWTH; Status: F Lab Order: UCG- In Lab; SPEC'M 07/01/16 14:27 Test: URINE PREG TEST; Value: NEGATIVE; Range: NEGATIVE; Status: F Lab Order: Lactic Acid (Lala tube on ice); SPEC'M 07/01/16 18:02 Test: LACTIC ACID SEPSIS PROTOCOL; Value: 0.9; Range: 0.4-2.0; Units: MMOL/L; Status: F Lab Order: Type & Screen; [facility] 07/01/16 18:02 Test: BLOOD TYPE; Value: A POS; Status: F Test: AB SCREEN (INDIRECT HIREN)GEL; Value: NEGATIVE; Status: F Lab Order: HCG, SERUM QUANTITATIVE; [facility] 07/01/16 14:37 Test: HCG, SERUM QUANTITATIVE; Value: < 1.0; Units: MIU/ML; Status: F Test Note: ; GESTATIONAL AGE APPROXIMATE HCG RANGE (MIU/ML) 0.2-1 WEEK 5-50 1-2 WEEKS 50-500 2-3 WEEKS 100-5,000 3-4 WEEKS 500-10,000 4-5 WEEKS 1,000-50,000 5-6 WEEKS 10,000-100,000 6-8 WEEKS 15,000-200,000 2-3 MONTHS 10,000-100,000 NON FEMALES LESS THAN 3.0 Patient samples may contain human heterophilic antibodies that could react with immunoassays to give falsely elevated or depressed results. This assay has been designed to minimize interference from heterophilic antibodies. Elevated hCG levels have also been associated with trophoblastic disease and nontrophoblastic neoplasms. The possibility of having these diseases should be considered before a diagnosis of is made. This test is not intended for use as a surrogate marker for aiding in the diagnosis or monitoring the treatment of cancer patients. [employer] methodology. Radiology Order: Gallbladder US Test: Gallbladder US REASON FOR EXAMINATION: Biliary Colic; RIGHT UPPER QUADRANT ULTRASOUND:; ; Real-time sonographic evaluation of the right upper quadrant performed.; ; The gallbladder demonstrates no evidence of intraluminal sludge or calculi, wall; thickening or pericholecystic fluid. There is no intrahepatic or extrahepatic; biliary dilatation, the common bile duct measuring 5 mm in diameter. Liver and; pancreas demonstrate homogeneous echotexture with no gross mass. The right kidney; dimensions no hydronephrosis or nephrolithiasis with normal size at 12.1 cm in; length.; ; IMPRESSION:; ; Negative right upper quadrant ultrasound.; ; ; Signed by; Thanh Lala MD 07/01/2016 04:47 P; Radiology Order: CT ABD & PELVIS: IV and Oral Contrast Test: CT ABD & PELVIS: IV and Oral Contrast REASON FOR EXAMINATION: Abdomen Pain; CT study of the abdomen and pelvis with IV and oral contrast:; ; History: Abdominal pain.; ; Comparison CT study: 09/13/2014.; ; CT contrast dose: 100 mL of Isovue-370 is administered intravenously.; ; CT findings: Preliminary digital lumber straightener radiograph of the abdomen demonstrates an; unremarkable bowel gas pattern. The lung bases show no evidence of infiltrate or; pleural effusion.; ; The liver and the spleen are normal in size homogeneous in texture. No adrenal; lesion is seen. Pancreas shows no abnormality. The kidneys enhance; symmetrically and are morphologically intact.; ; Ascites is visible in the upper abdomen in the perihepatic and perisplenic region; and extending along the pericolic gutters. In the pelvis there is moderate; fairly high density ascites filling the cul-de-sac consistent with peritoneal; hemorrhage. There is a cystic mass in the right adnexa measuring 4.5 cm in; greatest diameter. No uterine abnormality is observed. Urinary bladder is; intact. Small and large intestinal bowel loops are unremarkable.; ; Impression:; ; Findings compatible with moderate hemoperitoneum. This combined with a 4.5 cm; cystic mass in the right adnexa raises a question of ectopic with; rupture in this age group.; ; Findings were telephoned to the referring provider in the ED at the time of this; dictation.; ; ; Signed by; James Munoz MD 07/01/2016 07:30 P; Radiology Order: Chest, 2 View (pa\E\lat) Test: Chest, 2 View (pa\E\lat) REASON FOR EXAMINATION: Chest Pain; Chest x-ray: Two views.; ; History: Chest pain. .; ; Comparison study: January 28, 2015 .; ; Findings: The lungs are well inflated and free of infiltrate. The pleural; angles are sharp. The heart size is normal. Pulmonary vasculature is not; increased. No significant bony abnormality is seen.; ; Impression:; ; Negative chest x-ray.; ; ; Signed by; James Munoz MD 07/01/2016 03:53 P; Radiology Order: -US Pelvic Non-Ob Complete Test: -US Pelvic Non-Ob Complete REASON FOR EXAMINATION: Adnexal Pain r/o Torsion; ; CLINICAL HISTORY: History of ovarian cyst. Subseptate uterus.; ; TECHNIQUE: Realtime sonographic images were obtained in multiple projections.; ; FINDINGS:; There is a subseptate uterus that is anteverted measuring 7.62 x 3.58 x 5.11 cm. The endometrial ech; o pattern is within normal limits measuring 8.7 mm on the right and 7.6 mm on the left.; ; There is a moderate amount of blood seen in the cul-de-sac. There is a trace amount of free fluid see; n in Lerma's pouch.; ; The right ovary measures 5.05 x 4.35 x 4.85 cm with a hemorrhagic cyst measuring 4.17 x 3.85 x 3.62 c; m. The left ovary measures 2.8 x 2.3 x 2.4 cm.; ; There is no evidence for abnormal vascularity.; ; The bladder measures 9.54 x 6.14 x 0.92 cm.; ; IMPRESSION:; 1. Subseptate uterus.; 2. Moderate amount of blood in the cul-de-sac. Trace free fluid in Lerma's pouch.; 3. 4 cm right ovarian hemorrhagic cyst. Consider follow-up study in one to 2 menstrual cycles.; ; Thank you for your kind referral of this patient. We appreciate the opportunity to participate in [facility]; s patient's care.; ; ; ; Outcome: 17:40 CT Study completed. kc3 19:57 Discharge ordered by Provider. dt4 20:12 Discharge Assessment: Patient awake, alert and oriented x 3. No cognitive and/or ld5 functional deficits noted. Patient verbalized understanding of disposition instructions. patient administered narcotics - yes. Pt provided with safe discharge. The following High Risk Discharge criteria are identified: None. Discharged to home ambulatory, with significant other. Condition: stable. Discharge instructions given to patient, significant other, Instructed on discharge instructions, follow up and referral plans. medication usage, no driving heavy equipment, Demonstrated understanding of instructions, medications, Pt was receptive of discharge instructions/ teaching. Prescriptions given X 1. Ultrasound Study completed. Property :Personal belongings accompany Pt. 20:14 Patient left the ED. ld5 Signatures: Dispatcher [employer] EDMS Adilene Mccall, LC RN Jaxon Beltrán, Harleen Xiong lg sm5 Lois William, RURAL CARRIER RURAL CARRIER jb5 Logan Verduzco, Reg Reg kf3 Andra,LC Albright RN rs3 Garrick Angeles PA PA btw Dickerson, Laura,RN RN ld5 Estefany, Mike hgl Corina Luna, LC RN ttb Jaja Valenzuela mm15 Patchen, Maribell, RURAL CARRIER RURAL CARRIER elp Anastasia Sierra, MARYELLEN PA-Hansa dt4 Corinna Anglin RN RN ms18 Shannan Sanchez,LC RN kc3 Francis Jennings, RURAL CARRIER RURAL CARRIER jmv Natalee Silverman RN rs3 Corrections: (The following items were deleted from the chart) 18:07 18:04 HCG, SERUM QUANTITATIVE+LAB sent. kc3 EDMS Chart Complete MTDD
--- NOTE | 2016-07-03 21:15 | EDDOCDS ---
Physician Documentation [facility] Name: Karyna Villatoro Age: 21 yrs Sex: Female : 1995 Arrival Date: 07/01/2016 Time: 13:22 Bed I5 / M5 Private MD: Eileen [facility] [place] Disposition: 07/01/16 19:57 Discharged to Home/Self Care. Impression: Upper abdominal pain, unspecified - RUQ, Hemoperitoneum, Other ovarian cysts - RIGHT, 4.5CM HEMORRHAGIC. - Condition is Stable. - Discharge Instructions: Ovarian Cyst, Abdominal Pain, Women. - Prescriptions for [place] 5- 325 mg Oral Tablet - take 1 tablet by ORAL route every 6 hours As needed MDD: 4 tabs; 15 tablet. - Medication Reconciliation, Local Pharmacy Hours form. - Follow up: Emergency Department; When: As needed; Reason: Worsening of conditions. Follow up: Kendy Geller MD; When: Call to arrange an appointment; Reason: Wound/Symptom Recheck, Recheck today's complaints, Continuance of care. - Problem is new. - Symptoms have improved. Historical: - Allergies: no known allergies; - Home Meds: 1. meloxicam 15 mg oral tab 1 tab once daily 2. 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 No barriers to communication noted, The patient speaks fluent Korean. - Family history: Not pertinent. - : The pt / caregiver states he / she is not on anticoagulants. Home medication list is obtained from the patient. - Exposure Risk Screening:: None identified. 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 9 in. (175.26 cm); Pain 7/10; 15:36 Pain 2/10; kc3 15:53 BP 106 / 56; Pulse 67; Resp 18; Pulse Ox 98% on R/A; Pain 2/10; kc3 18:54 BP 125 / 65; Pulse 79; Resp 18; Temp 98.7(O); Pulse Ox 100% on R/A; Pain 2/10; jmv 20:12 BP 112 / 59; Pulse 81; Resp 16; Temp 97.9; Pulse Ox 100% on R/A; Pain 3/10; ld5 13:24 Body Mass Index 21.41 (65.77 kg, 175.26 cm) elp MDM: 14:22 NS 0.9% 1000 ml IV at bolus once ordered. btw 14:22 IV Saline Lock ordered. btw 14:22 Undress patient appropriately for examination ordered. btw 14:22 Metoclopramide 20 mg IV at 80 mg/hr once over 15 mins ordered. btw 14:22 diphenhydrAMINE 50 mg IVP once ordered. btw 14:23 Amylase Ordered. EDMS 14:23 Basic Metabolic Profile Ordered. EDMS 14:23 CBC with Diff Ordered. EDMS 14:23 Lipase Ordered. EDMS 14:23 Liver Profile Ordered. EDMS 14:23 Urinalysis Ordered. EDMS 14:23 Urine Culture Ordered. EDMS 14:23 Gallbladder US Ordered. EDMS 14:24 NOTHING BY MOUTH+DIET ordered. EDMS 14:25 UCG by Nursing ordered. btw 14:41 UCG- In Lab Ordered. EDMS 14:43 Financial registration complete. lg 15:15 [facility] Payment Agreement was scanned into [employer] and attached to record. lg 15:31 Amylase Reviewed. btw 15:31 Basic Metabolic Profile Reviewed. btw 15:31 CBC with Diff Reviewed. btw 15:31 Liver Profile Reviewed. btw 15:31 Lipase Reviewed. btw 15:31 Urinalysis Reviewed. btw 15:31 UCG- In Lab Reviewed. btw 15:35 Chest, 2 View (pa\E\lat) Ordered. EDMS 15:35 CT ABD & PELVIS: IV and Oral Contrast Ordered. EDMS 16:36 Diatrizoate Meglumine & Sodium Liquid 10 ml PO once; mix in 290cc of water ordered. kc3 16:36 Diatrizoate Meglumine & Sodium Liquid 10 ml PO once; mix in 290cc of water give at 1625 kc3 ordered. 17:55 Gallbladder US Reviewed. btw 17:55 Chest, 2 View (pa\E\lat) Reviewed. btw 17:55 -US Pelvic Non-Ob Complete Ordered. EDMS 17:55 DUPLEX SCAN LIMITED (DOPPLER)+US Ordered. EDMS 17:56 Lactic Acid (Lala tube on ice) Ordered. EDMS 17:56 Type & Screen Ordered. EDMS 18:01 Transvaginal NON- US Ordered. EDMS 18:07 HCG, SERUM QUANTITATIVE Ordered. EDMS 18:17 BED REQUEST+ADM ordered. EDMS 19:46 ED course: SPOKE WITH DR. MARTINEZ. ADVISED MOST LIKELY NOT SURGICAL. CALLED AND SPOKE dt4 WITH DR. GELLER AND ADVISED PAIN MEDICATION, SEND HOME AND WILL FOLLOW UP IN OFFICE. . 19:57 HYDROcodone-acetaminophen 4 pack- 5 mg-325 mg 1 packets PO Per package directions; dt4 Dispense with patient. 1 po q4h prn for pain ordered. 0204 10:31 [facility] Payment Agreement was scanned into [employer] and attached to record. mm15 17:46 Radiology Report was scanned into Ass[employer] and attached to record. kf3 Administered Medications: 07/01 15:09 Drug: diphenhydrAMINE 50 mg [diphenhydramine 50 mg/mL injection solution (1 mL)] Route: kc3 IVP; Site: left antecubital; 15:36 Follow up: Pain 2/10 Adult kc3 15:10 Drug: NS 0.9% 1000 ml [sodium chloride 0.9 % intravenous solution] Route: IV; Rate: kc3 bolus; Site: left antecubital; 19:56 Follow up: IV Status: Completed infusion; IV Intake: 1000ml ld5 15:10 Drug: Metoclopramide 20 mg [metoclopramide 5 mg/mL injection solution] Route: IV; Rate: kc3 80 mg/hr; Infused Over: 15 mins; Site: left antecubital; 15:36 Follow up: IV Status: Completed infusion kc3 16:37 Drug: Diatrizoate Meglumine & Sodium 10 ml [diatrizoate meglumine and diat.sodium 66 kc3 %-10 % oral solution (10 mL)] Route: PO; 16:37 Drug: Diatrizoate Meglumine & Sodium 10 ml [diatrizoate meglumine and diat.sodium 66 kc3 %-10 % oral solution (10 mL)] Route: PO; 20:04 Drug: HYDROcodone-acetaminophen 4 pack- 1 packets [hydrocodone 5 mg-acetaminophen 325 ld5 mg tablet (1 tabs)] {Co-Signature: rs3 (Natalee Silverman RN).} Route: PO; 20:08 Follow up: Response: Med's dispensed home ld5 Signatures: Dispatcher [employer] EDMS CassieJaxon silver, Reg Reg lg Logan Verduzco, Reg Reg kf3 Garrick Angeles PA PA btw Dickerson, LauraRN RN ld5 Corina Luna RN RN ttb Jaja Valenzuela mm15 Anastasia Sierra PA-C PA-Hansa cruz4 Corinna Anglin RN RN ms18 Shannan Sanchez RN RN kc3 Natalee Silverman RN rs3 The chart was reviewed and I authenticate all verbal orders and agree with the evaluation and treatment provided.Corrections: (The following items were deleted from the chart) 18:07 17:59 HCG, SERUM QUANTITATIVE+LAB ordered. EDMS EDMS Attachments: 15:15 [facility] [place] Agreement lg 07/02 10:31 [facility] Payment Agreement mm15 Chart Complete MTDD
== END 2016-07-01 20:14 | disposition home or self-care (01) ==
LOC: M ED 13:22
DX: N83.01 Follicular cyst of right ovary (principal); K66.1 Hemoperitoneum; E28.2 Polycystic ovarian syndrome; M19.90 Unspecified osteoarthritis, unspecified site; F41.9 Anxiety disorder, unspecified; F33.9 Major depressive disorder, recurrent, unspecified; F17.200 Nicotine dependence, unspecified, uncomplicated; Z79.899 Other long term (current) drug therapy; Z79.1 Long term (current) use of non-steroidal anti-inflammatories (NSAID)
CPT/HCPCS: 36415; 71020; 74177; 76705; 76830; 76856; 80048; 80076; 81001; 82150; 83605; 83690; 84702; 84703; 85025; 86850; 86900; 86901; 87086; 93976; 96361; 96365; 96375; 99284; J1200; J2765; Q9963; Q9967

== ENCOUNTER 2016-08-17 13:56 | Inpatient (IN) | payer OTHER ==
[~2016-08-17] VITALS: Ht 175.3 cm; Wt 64.4 kg
[~2016-08-17 13:56] MED LIST: ALBU17IN INH; MELO15TA4 PO; PRENTAB16 PO; VENL150C43 PO
[2016-08-17] MEDS ORDERED: EFFE150C PO (14:06)
[2016-08-17] MEDS ORDERED: EFFE75CA75 PO (14:06)
[2016-08-17 15:07] LABS: MEAN CORPUSCULAR HEMOGLOBIN 31.1 pg (27.0-33.0); MEAN CORPUSCULAR VOLUME 94.2 fl (80.0-96.0); RED CELL DISTRIBUTION WIDTH 12.1 % (11.5-14.5)
[2016-08-17 15:13] LABS: CONTROL LINE HCG INT CTR LINE PRESENT
[2016-08-17 15:23] LABS: METHADONE URINE NEGATIVE (NEGATIVE)
[2016-08-17 15:31] LABS: ANION GAP 6 MEQ/L (8-16); AST/SGOT 15 U/L (15-37); BLOOD UREA NITROGEN 11 MG/DL (7-18); CALCIUM LEVEL 9.1 MG/DL (8.5-10.1); CARBON DIOXIDE LEVEL 29 MEQ/L (21-32); CHLORIDE LEVEL 106 MEQ/L (98-107); CREATININE FOR GFR 0.74 MG/DL (0.55-1.02); GLOMERULAR FILTRATION RATE > 60.0 (>60); GLUCOSE, FASTING 84 MG/DL (70-105); POTASSIUM SERUM 4.1 MEQ/L (3.5-5.1); SODIUM LEVEL 141 MEQ/L (136-145)
[2016-08-17 15:32] LABS: ALBUMIN 4.3 GM/DL (3.2-5.2); ALBUMIN/GLOBULIN RATIO 1.39 (1.00-1.93); ALKALINE PHOSPHATASE 79 U/L (45-117); ALT/SGPT 22 U/L (12-78); BILIRUBIN,DIRECT 0.2 MG/DL (0.0-0.2); BILIRUBIN,TOTAL 0.7 MG/DL (0.2-1.0); TOTAL PROTEIN 7.4 GM/DL (6.4-8.2)
[2016-08-17 17:09] VITALS: BP 117/78
[2016-08-17] MEDS ORDERED: MOM 30ML SUSPENSION UDC PO PRN (18:00)
[2016-08-17] MEDS ORDERED: MAALOX 30 ML SUSP *UDC PO PRN (18:00)
[2016-08-17] MEDS ORDERED: ALBUTEROL 90 MCG/ACT 8GM HFA INHALER INH PRN (18:00)
[2016-08-17] MEDS ORDERED: ACETAMINOPHEN TAB 650MG DOSE (2X325MG) PO PRN (18:00)
[2016-08-17] MEDS: NICOTINE 21MG/24HR 1 EA TRANSDERMAL TD SCH (20:36)
[2016-08-17] MEDS: MELOXICAM (MOBIC) 7.5 MG TAB PO SCH (20:36)
[2016-08-18 06:47] VITALS: BP 118/55
[2016-08-18] MEDS ORDERED: VENLAFAXINE **XR** 75MG CAPSULE PO SCH ×2 (09:00)
[2016-08-18] MEDS: NICOTINE 21MG/24HR 1 EA TRANSDERMAL TD SCH (09:14)
[2016-08-18] MEDS: PRENATAL VITAMIN TAB PO SCH (09:14)
[2016-08-18] MEDS: MELOXICAM (MOBIC) 7.5 MG TAB PO SCH (09:14)
[2016-08-18] MEDS: VENLAFAXINE **XR** 37.5 MG CAPSULE PO SCH (09:53)
[2016-08-18] MEDS: VENLAFAXINE **XR** 75MG CAPSULE PO SCH (09:53)
--- NOTE | 2016-08-18 12:39 | HPEPDOC ---
Medical History and Physical Date of Admission Aug 17, 2016 at 16:01 History and Physical PCP: Eileen ATTENDING: Dr. Rusty Montenegro HPI: 21yoF admitted to [facility] for unspecified depressive disorder, being medically examined today. No acute medical complaints today. Patient states she has noticed a mild rash on her torso since she started Effexor XR and she wants to discontinue it. Denies any fevers, chills, weakness, fatigue, BRAUN, CP, SOB, cough, palpitations, abdominal pain, N/V/D or changes in bowel or bladder habits. 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 ROS: As noted in HPI, otherwise 11pt ROS of systems reviewed and remarkable only for LMP 07/29/16 PE: GEN: 21 yo F, appears stated age. Well-nourished, well developed. No acute distress. Alert and oriented x 3. Pleasant, interactive. HEENT: Normocephalic, atraumatic. Pupils are equal, round, and reactive to light. Extraocular movements are intact. No nystagmus appreciated. Sclera are nonicteric. Conjunctiva without injection. Nose midline. Nasal turbinates without bogginess. EACs both patent BL. TMs both visualized and genao with good cone of light, no bulging or erythema. No facial asymmetry. Moist mucous membranes. Dentition fair. Pharynx pink and moist, no cobblestoning. Neck supple , trachea midline. No lymphadenopathy or thyromegaly appreciated. CHEST: Regular rate and rhythm, +S1, +S2 LUNGS: Clear to auscultation bilaterally. No wheezes, rales, or rhonchi. Breathing appears symmetric and easy. Patient is speaking in full sentences. No accessory muscle use. ABD: Round, soft, non-tender, non-distended. +Bowel sounds throughout. No rebound or guarding. No costovertebral angle tenderness. EXT: Pulses 2+ bilaterally dorsalis pedis and radial. No lower extremity edema appreciated. SKIN: [place], dry, warm. Capillary refill <2sec. Mild erythematous maculopapular rash noted across anterior chest and upper back. NEURO: Alert and oriented x 3. Cranial nerves III-XII are intact. No focal deficits appreciated. EKG: Pending. A&P: 21yoF admitted to [facility] for unspecified depressive disorder 1. Psych. Plan per Psychiatry. Obtain baseline EKG to assure the safety of psychiatric medications as they can prolong the QT interval. 2. Nicotine dependence. Patch available. 3. Asthma. Continue albuterol HFA 2 puffs every 4 hours as needed. 4. Follow up with PCP on discharge. 5. Allergic rhinitis. Patient states no recent symptoms. Zyrtec 10 mg if needed. 6. Chronic knee pain. Patient states this is controlled. Continue meloxicam 15 mg daily. 7. Rash. Possibly medication related. Patient does not wish to apply any topical creams at this time stating she will discuss with her attending provider. She feels it is related to her antidepressant, Effexor. 8. Staff member Tiffany present throughout exam. Vital Signs Vital Signs Label Value Date Time Patient Temperature 98.3 degrees F 08/18/16 0647 Temperature Source Core 08/18/16 0647 Pulse 71 08/18/16 0647 Respiratory Rate 16 bpm 08/18/16 0647 Blood Pressure Assessment 118/55 (76) 08/18/16 0647 Laboratory Data Labs 24H Laboratory Tests 2 08/17/16 14:53: Acetaminophen Level < 2.0L, Aspartate Amino Transf (AST/SGOT) 15, Alanine Aminotransferase (ALT/SGPT) 22, Alkaline Phosphatase 79, Total Bilirubin 0.7, Direct Bilirubin 0.2, Albumin 4.3, Albumin/Globulin Ratio 1.39, Anion Gap 6L, Calcium Level 9.1, Ethyl Alcohol Level < 0.003, Glomerular Filtration Rate > 60.0, Human Chorionic Gonadotropin, Qual NEGATIVE, Salicylates Level < 1.7L, Thyroid Stimulating Hormone (TSH) 0.828, Total Protein 7.4, Urine Amphetamines Screen NEGATIVE, Urine Benzodiazepines Screen NEGATIVE, Urine Opiates Screen NEGATIVE, Urine Barbiturates Screen NEGATIVE, Urine Cannabinoids Screen NEGATIVE , Urine Cocaine Metabolite Screen NEGATIVE, Urine Methadone Screen NEGATIVE, Urine Phencyclidine Screen NEGATIVE CBC/BMP Laboratory Tests 08/17/16 14:53 Red Blood Count 4.29, Mean Corpuscular Volume 94.2, Mean Corpuscular Hemoglobin 31.1, Mean Corpuscular Hemoglobin Concent 33.0, Red Cell Distribution Width 12.1 Home Medications Scheduled Meloxicam (Meloxicam) 15 Mg Tab 15 MG PO DAILY PATIENT IS ALL OUT OF MEDICATION Multivitamins/ ( Complete 14-0.4 mg) 1 Tab Tab 1 TAB PO DAILY Venlafaxine Hydrochloride (Effexor Xr) 75 Mg Cap 75 MG PO DAILY 225MG TOTAL DAILY Venlafaxine Hydrochloride (Effexor Xr) 150 Mg Cap 150 MG PO DAILY 225MG TOTAL DAILY Scheduled PRN Albuterol Sulfate (Ventolin Hfa) 200 Puff/8 Gm Aers 2 PUFF INH QID PRN PRN SHORTNESS OF BREATH Allergies Coded Allergies: No Known Allergies (Unverified , 08/17/16) Stcaey Genao Aug 18, 2016 12:39
[2016-08-18] MEDS: PROPRANOLOL 10 MG TAB PO PRN (13:03)
[2016-08-18 18:00] VITALS: BP 119/61
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
--- NOTE | 2016-08-18 22:24 | ECGEPIP ---
Stationary ECG Study [facility] Test Date: 2016-08-18 Pat Name: BETTY GOODMAN Department: Room: [place] [address] Gender: F Pcb Designer: ZULEIKA : 1995 Requested By: Stacey Genao Order Number: [id number] Reading MD: Alban Aparicio Measurements Intervals [place] Rate: 65 P: 63 NH: 141 QRS: 82 QRSD: 89 T: 62 QT: 419 QTc: 438 Interpretive Statements SINUS RHYTHM SIMILAR 01/13/15 Electronically Signed On 08-18-2016 22:24:07 EDT by Alban Aparicio
[2016-08-18] MEDS: traZODone 50 MG TAB PO PRN (23:02)
[2016-08-19 06:26] VITALS: BP 110/52
[2016-08-19] MEDS: VENLAFAXINE **XR** 37.5 MG CAPSULE PO SCH (09:00)
[2016-08-19] MEDS: NICOTINE 21MG/24HR 1 EA TRANSDERMAL TD SCH (09:23)
[2016-08-19] MEDS: PRENATAL VITAMIN TAB PO SCH (09:23)
[2016-08-19] MEDS: MELOXICAM (MOBIC) 7.5 MG TAB PO SCH (09:23)
[2016-08-19] MEDS: VENLAFAXINE **XR** 75MG CAPSULE PO SCH (14:53)
[2016-08-19 18:00] VITALS: BP 121/60
--- NOTE | 2016-08-19 20:24 | IPNPDOC ---
[facility] Progress Note Progress Note DATE OF SERVICE: 08/19/16 INTERVAL HISTORY: The patient is met with today. She describes that she is feeling much better on the lower dose of venlafaxine. She describes that she wishes to lower back down to the 150 mg that she been on before she was jumped to 225 mg. She describes the Inderal has been very effective for her anxiety and that she is feeling much better and getting closer to discharge. She additionally asked for an order to have her home close as her family had driven from [place] in order to provide her these. She described that her called her and spoke to her for some time. Patient describes that this was a massive positive experience for her as she felt as though she needed the support from her significant other. Nursing staff have noted that the patient is more engaged and affable. She was also present group and appeared to engage in the group process and receive support anxiety coping skills from others. VITAL SIGNS: See below. NEW TEST RESULTS: See below CURRENT MEDICATIONS: See below. MENTAL STATUS EXAMINATION: General: Well dressed with good hygiene Speech: Spontaneous and fluid Thought processes: Linear and logical Thought content: Less perseveration on worry Abstract reasoning, and computation: Intact Description of associations: Intact Description of abnormal or psychotic thoughts:Denies any suicidal or homicidal ideation. Denies any auditory or visual hallucinations. Does not appear to be responding to internal stimuli. Does not appear to be endorsing any bizarre or paranoid ideation. Judgment: Fair Insight: Good Orientation: Alert and orientated 3 Recent and remote memory: Intact Attention span and concentration: Intact Fund of knowledge: Adequate Mood: "Better" Affect: Euthymic with a full range DIAGNOSES: 1. Unspecified depressive disorder. 2. Unspecified anxiety disorder. 3. Unspecified personality disorder. ASSESSMENT: The patient 21-year-old woman with previous depression anxiety presented after experiencing acute suicidality after being increased on venlafaxine to 225 mg from 150 mg. She has stabilize quite well with just lowering the medication dosage. Propranolol peers to be effective for controlling her anxiety and the milieu and group therapy have been effective for helping her to process. MANAGEMENT PLAN: Medications: Lower venlafaxine to 150 mg daily continue propranolol 10 mg when necessary. Psychotherapy: Continue with group psychotherapy Social: Consider having and 's mother meet for family meeting with patient Misc: None Disposition: The patient will need a longer inpatient stay for further medication titration but is approaching approaching full psychiatric stability. She possibly will be discharged early next week. TIME SPENT: 15 minutes. Vital Signs Vital Signs Date Time Temp Pulse Resp B/P Pulse Ox O2 Delivery O2 Flow Rate FiO2 08/19/16 06:26 98.5 66 16 110/52 08/17/16 16:57 98 08/17/16 14:00 Room Air Current Medications Current Medications Acetaminophen (Tylenol Tab) 650 mg Q6HP PRN PO HEADACHE or DISCOMFORT; Start at 18:00; Stop 09/16/16 at 17:59 Al Hydrox/Mg Hydrox/Simethicone (Mylanta) 30 ml Q4HP PRN PO HEARTBURN/ INDIGESTION; Start 08/17/16 at 18:00; Stop 09/16/16 at 17:59 Albuterol Sulfate (Proventil, Ventolin Hfa) 2 puff Q4HP PRN INH SHORTNESS OF BREATH; Start 08/17/16 at 18:00; Stop 09/16/16 at 17:59 Home Med (Med Rec Complete!) ASDIRECTED XX ; Start 08/17/16 at 16:30; Stop at 16:32; Status DC Magnesium Hydroxide (Milk Of Magnesia) 30 ml DAILYPRN PRN PO CONSTIPATION; Start 08/17/16 at 18:00; Stop 09/16/16 at 17:59 Meloxicam (Mobic) 15 mg DAILY PO Last administered on 08/19/16 09:23; Start at 09:00; Stop 09/16/16 at 08:59 Nicotine (Nicoderm Cq 21mg) 1 patch DAILY TD Last administered on 08/19/16 09: 23; Start 08/17/16 at 09:00; Stop 09/16/16 at 08:59 Prenat Multivit/ [place]/Iron/Folic Ac ( Rx) 1 tab DAILY PO Last administered on 08/19/16 09:23; Start 08/18/16 at 09:00; Stop 09/17/16 at 08:59 Propranolol HCl (Inderal) 10 mg Q6HP PRN PO anxeity Last administered on 13:03; Start 08/18/16 at 10:45; Stop 09/17/16 at 10:44 Trazodone HCl (Desyrel) 50 mg QHSP PRN PO INSOMNIA Last administered on 23:02; Start 08/17/16 at 18:00; Stop 09/16/16 at 17:59 Venlafaxine HCl (Effexor Xr) 37.5 mg DAILY PO Last administered on 09:53; Start 08/18/16 at 09:00; Stop 08/19/16 at 14:35; Status DC Venlafaxine HCl (Effexor Xr) 150 mg DAILY PO Last administered on 14:53; Start 08/18/16 at 09:00; Stop 09/17/16 at 08:59 Venlafaxine HCl (Effexor Xr) 187.5 mg DAILY PO ; Start 08/18/16 at 09:00; Stop 09/17/16 at 08:59; Status Cancel Venlafaxine HCl (Effexor Xr) 225 mg DAILY PO ; Start 08/18/16 at 09:00; Stop 08/18/16 at 09:42; Status DC Allergies Coded Allergies: No Known Allergies (Unverified , 08/17/16) GME ATTESTATION My preceptor for this patient encounter was physically present in the building during the encounter and was fully available. As needed, all aspects of the patient interview, examination, medical decision making process, and medical care plan development were reviewed and approved by the preceptor. Preceptor is aware and concurs with the plan as stated in the body of this note and will attest to such by his/her cosignature. CORNEL CANO DO Aug 19, 2016 20:24 CORNEL CANO DO Aug 19, 2016 20:24
[2016-08-20] MEDS: traZODone 50 MG TAB PO PRN (00:20)
[2016-08-20 06:44] VITALS: BP 130/81
[2016-08-20] MEDS: MELOXICAM (MOBIC) 7.5 MG TAB PO SCH (08:22)
[2016-08-20] MEDS: NICOTINE 21MG/24HR 1 EA TRANSDERMAL TD SCH (08:22)
[2016-08-20] MEDS: VENLAFAXINE **XR** 75MG CAPSULE PO SCH (08:22)
[2016-08-20] MEDS: PRENATAL VITAMIN TAB PO SCH (08:22)
--- NOTE | 2016-08-20 15:00 | IPNPDOC ---
[facility] Progress Note Progress Note DATE OF SERVICE: 08/20/16 INTERVAL HISTORY: The patient is met with today. She describes the venlafaxine at 150 mg is quite effective for her symptom treatment. She describes that she is mildly anxious but feels that this is due to the presence of others on the [place]. She describes that she was able to get her clothing last night and that she feels "much better" be able to walk around in her street close. She describes that she was able to speak to her the previous night and this was. Helpful for her. She ascribes that her 's mother is currently taking care of their animals at home and will support her after she leaves. Patient states the propranolol had been somewhat helpful for anxiety during the previous evening. She knows no ill effects from her medications. Nursing staff appeared to support that she is doing quite well and has become more interactive in groups. She was interested in when she might be discharged. Otherwise, the patient has no complaints and states that she is feeling "great". VITAL SIGNS: See below. NEW TEST RESULTS: See below CURRENT MEDICATIONS: See below. MENTAL STATUS EXAMINATION: General: Well dressed with good hygiene Speech: Spontaneous and fluid Thought processes: Linear and logical Thought content: Reflective thoughts on previous relations Abstract reasoning, and computation: Intact Description of associations: Intact Description of abnormal or psychotic thoughts:Denies any suicidal or homicidal ideation. Denies any auditory or visual hallucinations. Does not appear to be responding to internal stimuli. Does not appear to be endorsing any bizarre or paranoid ideation. Judgment: Fair Insight: Fair Orientation: Alert and orientated 3 Recent and remote memory: Intact Attention span and concentration: Intact Fund of knowledge: Adequate Mood: "Great" Affect: Euthymic with a full range DIAGNOSES: 1. Unspecified depressive disorder. 2. Unspecified anxiety disorder. 3. 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 ASSESSMENT: 21-year-old woman with a history of depression and anxiety whom was increased on her venlafaxine from 150 mg 225 mg a short period of time experienced subsequent suicidal ideation which she attributes to this change. She is been reduced 250 mg slowly to avoid withdrawal symptoms and appears responding quite well to this and the milieu. MANAGEMENT PLAN: Medications: Continue venlafaxine 150 mg daily extended release formula and propranolol 10 mg when necessary Psychotherapy: Continue standard group/milieu/individual psychotherapy Social: Consider meeting with 's in order to have family meeting for discharge Misc: Offered patient time off from work in order to recover after discharge Disposition: Patient will need further inpatient time in order to prepare a safe and effective discharge TIME SPENT: 20 minutes. Vital Signs Vital Signs Date Time Temp Pulse Resp B/P Pulse Ox O2 Delivery O2 Flow Rate FiO2 08/20/16 06:44 98.2 86 16 130/81 Room Air 08/17/16 16:57 98 Current Medications Current Medications Acetaminophen (Tylenol Tab) 650 mg Q6HP PRN PO HEADACHE or DISCOMFORT; Start at 18:00; Stop 09/16/16 at 17:59 Al Hydrox/Mg Hydrox/Simethicone (Mylanta) 30 ml Q4HP PRN PO HEARTBURN/ INDIGESTION; Start 08/17/16 at 18:00; Stop 09/16/16 at 17:59 Albuterol Sulfate (Proventil, Ventolin Hfa) 2 puff Q4HP PRN INH SHORTNESS OF BREATH; Start 08/17/16 at 18:00; Stop 09/16/16 at 17:59 Home Med (Med Rec Complete!) ASDIRECTED XX ; Start 08/17/16 at 16:30; Stop at 16:32; Status DC Magnesium Hydroxide (Milk Of Magnesia) 30 ml DAILYPRN PRN PO CONSTIPATION; Start 08/17/16 at 18:00; Stop 09/16/16 at 17:59 Meloxicam (Mobic) 15 mg DAILY PO Last administered on 08/20/16 08:22; Start at 09:00; Stop 09/16/16 at 08:59 Nicotine (Nicoderm Cq 21mg) 1 patch DAILY TD Last administered on 08/20/16 08: 22; Start 08/17/16 at 09:00; Stop 09/16/16 at 08:59 Prenat Multivit/ [place]/Iron/Folic Ac ( Rx) 1 tab DAILY PO Last administered on 08/20/16 08:22; Start 08/18/16 at 09:00; Stop 09/17/16 at 08:59 Propranolol HCl (Inderal) 10 mg Q6HP PRN PO anxeity Last administered on 13:03; Start 08/18/16 at 10:45; Stop 09/17/16 at 10:44 Trazodone HCl (Desyrel) 50 mg QHSP PRN PO INSOMNIA Last administered on 00:20; Start 08/17/16 at 18:00; Stop 09/16/16 at 17:59 Venlafaxine HCl (Effexor Xr) 37.5 mg DAILY PO Last administered on 09:53; Start 08/18/16 at 09:00; Stop 08/19/16 at 14:35; Status DC Venlafaxine HCl (Effexor Xr) 150 mg DAILY PO Last administered on 08:22; Start 08/18/16 at 09:00; Stop 09/17/16 at 08:59 Venlafaxine HCl (Effexor Xr) 187.5 mg DAILY PO ; Start 08/18/16 at 09:00; Stop 09/17/16 at 08:59; Status Cancel Venlafaxine HCl (Effexor Xr) 225 mg DAILY PO ; Start 08/18/16 at 09:00; Stop 08/18/16 at 09:42; Status DC Allergies Coded Allergies: No Known Allergies (Unverified , 08/17/16) GME ATTESTATION My preceptor for this patient encounter was physically present in the building during the encounter and was fully available. As needed, all aspects of the patient interview, examination, medical decision making process, and medical care plan development were reviewed and approved by the preceptor. Preceptor is aware and concurs with the plan as stated in the body of this note and will attest to such by his/her cosignature. CORNEL CANO DO Aug 20, 2016 15:00
[2016-08-20] MEDS: PROPRANOLOL 10 MG TAB PO PRN (15:33)
[2016-08-20 18:00] VITALS: BP 122/65
[2016-08-21] MEDS: traZODone 50 MG TAB PO PRN ×2 (00:10→23:04)
[2016-08-21 06:21] VITALS: BP 120/72
[2016-08-21] MEDS: NICOTINE 21MG/24HR 1 EA TRANSDERMAL TD SCH (09:39)
[2016-08-21] MEDS: VENLAFAXINE **XR** 75MG CAPSULE PO SCH (09:40)
[2016-08-21] MEDS: MELOXICAM (MOBIC) 7.5 MG TAB PO SCH (09:40)
[2016-08-21] MEDS: PRENATAL VITAMIN TAB PO SCH (09:41)
[2016-08-21 12:57] VITALS: BP 120/72
[2016-08-21] MEDS: PROPRANOLOL 10 MG TAB PO PRN (12:57)
--- NOTE | 2016-08-21 15:45 | IPN ---
DATE: 08/21/2016 I spoke with Karyna Villatoro and she described how her increased Effexor dose had caused her significant anxiety and depression. She is feeling well and she is working with Dr. Mendez. No change in medications at this time. Eye contact is good. Speech is normal rate and rhythm. No disturbances of thought process. No loose associations. No psychotic thoughts. Judgment and insight are good. Orientation is in three spheres. Recent and remote memory are intact. Attention and concentration are good. Fund of knowledge is good. Mood is good. Affect is bright. It is my understanding she will be discharged tomorrow. She is presently on: - venlafaxine 150 mg daily - propranolol 10 mg every 6 hours for anxiety DIAGNOSES: 1. Unspecified depressive disorder. 2. Unspecified anxiety disorder. 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
[2016-08-21 18:00] VITALS: BP 107/58
[2016-08-22 06:00] VITALS: BP 101/59
[2016-08-22] MEDS: MELOXICAM (MOBIC) 7.5 MG TAB PO SCH (08:41)
[2016-08-22] MEDS: PRENATAL VITAMIN TAB PO SCH (08:41)
[2016-08-22] MEDS: VENLAFAXINE **XR** 75MG CAPSULE PO SCH (08:41)
[2016-08-22] MEDS: NICOTINE 21MG/24HR 1 EA TRANSDERMAL TD SCH (08:42)
[2016-08-22] MEDS ORDERED: PROP10TA56 PO (10:56)
[2016-08-22] MEDS ORDERED: VENL75CA PO (10:56)
[2016-08-22] MEDS ORDERED: NICO21PAT TD (11:11)
--- NOTE | 2016-08-22 18:44 | DS.PDOC ---
[facility] Discharge Summary Discharge Summary DATE OF ADMISSION: Aug 17, 2016 at 16:01 DATE OF DISCHARGE: Aug 22, 2016 at 13:30 DISCHARGE DIAGNOSES: 1. Substance-induced depressive disorder. 2. Unspecified anxiety disorder. 3. Possible dependent/avoidance traits. REASON FOR ADMISSION: The patient was admitted due to suicidality after she been increased on her venlafaxine from 150 mg to 225 mg in a relatively quick fashion. She described that after this change began to endorse suicidal thoughts which she described was fairly unusual for her. She presented in order to find a safe and stable environment CONSULTANTS INVOLVED: None TREATMENT AND PROGRESS ON THE UNIT : Legal status on admission: 9.39 Medication Management: The patient was lowered from her 225 mg dose of venlafaxine down to one her 150 mg daily. She appeared to stabilize in her mood symptoms appeared to resolve as the dose had been lowered. She was given some when necessary propranolol for anxiety which appeared to do well for her social difficulties. Psychotherapy: Patient is being group and individual psychotherapy Behavior: The patient first was reserved and anxious but after the subsequent titration down of the venlafaxine and started the propranolol she was active and engaged in the milieu. She was found to be friendly and future thinking towards her discharge. Discharge planning: As the patient stabilized she was slated for discharge. [place] Her 's mother was present in order to do the family meeting and to help take care for after her discharge. DISCHARGE ASSESSMENT: 21-year-old woman started on venlafaxine and increased from one her 150 mg to 225 mg reportedly, who appeared to manifest severe depressive symptoms associated with suicidality. She only needed stabilization the milieu and lowering of her venlafaxine and a small dose of propranolol in order to stabilize her psychiatrically. MENTAL STATUS EXAMINATION ON DISCHARGE: General: Well dressed with good hygiene Speech: Spontaneous and fluid Thought processes: Linear and logical Thought content: Worries about discharge Abstract reasoning, and computation: Intact Description of associations: Intact Description of abnormal or psychotic thoughts:Denies any suicidal or homicidal ideation. Denies any auditory or visual hallucinations. Does not appear to be responding to internal stimuli. Does not appear to be endorsing any bizarre or paranoid ideation. Judgment: Good Insight: Good Orientation: Alert and orientated 3 Recent and remote memory: Intact Attention span and concentration: Intact Fund of knowledge: Adequate Mood: "Great" Affect: Euthymic with a full range PLAN/FOLLOWUP ARRANGEMENTS: The patient was discharged to the care of her 's mother whom well help take care of her during the post discharge time. She is additionally given a letter to be allowed off of work for one week in order to recover. The amount of time spent in the coordination of care for this patient was approximately 30 minutes. Vital Signs Vital Sign - Last 24 Hours 08/22/16 06:00 Temp 97.6 Pulse 69 Resp 16 B/P 101/59 Medications Scheduled Meloxicam (Meloxicam) 15 Mg Tab 15 MG PO DAILY PAIN (Reported) Multivitamins/ ( Complete 14-0.4 mg) 1 Tab Tab 1 TAB PO DAILY SUPPLEMENT (Reported) Nicotine (Nicotine Transdermal Syst) 21 Mg/24 Hr Dis #14 1 PATCH TD DAILY SMOKING CESSATION Venlafaxine HCl (Venlafaxine HCl ER) 75 Mg Cap #7 150 MG PO DAILY moo Scheduled PRN Albuterol Sulfate (Ventolin Hfa) 200 Puff/8 Gm Aers 2 PUFF INH QID PRN PRN SHORTNESS OF BREATH (Reported) Propranolol HCl (Propranolol HCl) 10 Mg Tab #5 10 MG PO Q6HP PRN PRN anxeity Allergies Coded Allergies: No Known Allergies (Unverified , 08/17/16) GME ATTESTATION My preceptor for this patient encounter was physically present in the building during the encounter and was fully available. As needed, all aspects of the patient interview, examination, medical decision making process, and medical care plan development were reviewed and approved by the preceptor. Preceptor is aware and concurs with the plan as stated in the body of this note and will attest to such by his/her cosignature. CORNEL CANO DO Aug 22, 2016 18:44
== END 2016-08-22 13:30 | disposition home or self-care (01) | DRG 898 ==
LOC: M ED 15:07 → M ED INP 16:01 → M PSY 17:05
PROVIDERS: ADMIT Psychiatry & Neurology Psychiatry; ATTEND Psychiatry & Neurology Psychiatry
DX: F10.94 Alcohol use, unspecified with alcohol-induced mood disorder (principal); F41.9 Anxiety disorder, unspecified; F60.7 Dependent personality disorder; F60.6 Avoidant personality disorder; Z79.899 Other long term (current) drug therapy; J45.909 Unspecified asthma, uncomplicated; F17.200 Nicotine dependence, unspecified, uncomplicated; L27.0 Generalized skin eruption due to drugs and medicaments taken internally

== ENCOUNTER → 2020-10-01 | Outpatient (CLI) | payer OTHER ==
[~2020-10-01] MED LIST changes: +EFFE150C2 PO; +EFFE75CA2 PO; +MELO15TA28 PO; -MELO15TA4 PO; +NICO21PAT TD; +PROP10TA56 PO; +VENL75CA2 PO
--- NOTE | 2020-10-01 14:57 | REP ---
INDICATION: R BREAST MASTODYNIA. COMPARISON: None TECHNIQUE: Diagnostic mammography of the right breast was carried out in the CC, MLO, and exaggerated CC lateral views in both 2D and 3D modalities along with spot compression views in the CC and MLO projections. The region of clinical interest was indicated by the technologist placing a triangular-shaped marker on the skin of the right breast over a clinically palpable mass.. FINDINGS: In the right breast upper outer quadrant near the 10 o'clock position there is a large solid mass-like density. This persists on spot compression views. Diagnostic ultrasonography over the region of interest shows a hypoechoic solid slightly irregular mass which measures 5.1 x 1.6 x 4.5 cm. The Volpara volumetric breast density pattern is C IMPRESSION: In the right breast, as described above, there is a solid breast mass. Since it is a painful mass, and since the patient is a family history of breast cancer, out of an abundance of caution I recommend ultrasound-guided biopsy This patient's Tyrer-Cuzick lifetime breast cancer risk assessment score is 32.7%. This mammogram was interpreted with the aid of an FDA-approved computer-aided detection system. The patient states she had a clinical breast exam in 08/10/2020. The patient letter being requested is M4. RECOMMENDATION: As above <Electronically signed by Gustavo Shore > 10/01/20 [id number]
== END ==
LOC: M WHC 09:42
PROVIDERS: ATTEND Family Medicine
DX: Z12.31 Encounter for screening mammogram for malignant neoplasm of breast (principal); N63.11 Unspecified lump in the right breast, upper outer quadrant; N64.4 Mastodynia
CPT/HCPCS: 76642; 77065; G0279

== ENCOUNTER → 2020-10-13 | Outpatient (CLI) | payer OTHER ==
[2020-10-13 10:27] VITALS: BP 110/80
--- NOTE | 2020-10-13 10:44 | REP ---
INDICATION: R BREAST US GUIDED BX/CK CLIP PLACEMENT. Post clip placement mammography right breast. COMPARISON: None. Comparison mammography October 01, 2020. TECHNIQUE: Craniocaudal, laterally exaggerated craniocaudal, and mediolateral oblique views of the right breast are obtained post biopsy. FINDINGS: Post biopsy clip marker views demonstrate a marker clip in the posterior aspect of the mass in the upper outer quadrant the right breast in good position. There is no visible hematoma. Breast parenchyma is otherwise unchanged. IMPRESSION: Marker clip is seen in good position along the posterior aspect of the mass in the upper-outer quadrant of the right breast. <Electronically signed by Jose Munoz > 10/13/20 [id number]
--- NOTE | 2020-10-13 13:37 | REP ---
INDICATION: R BREAST US GUIDED BX. COMPARISON: None. TECHNIQUE: The procedure was performed by Jolie Liang [facility], under the direct supervision of Dr. Munoz. The risks and benefits of the procedure were explained to the patient and an informed consent was obtained both verbally and written. Directly prior to the start of the procedure a formal time-out was completed in the procedure room. FINDINGS: Using ultrasound guidance the right breast mass breast mass was localized. The skin was prepped and draped in a sterile fashion. Twelve mL of buffered lidocaine was used as a local anesthetic. Using ultrasound guidance a 14 gauge Personal[employer] Marquee coaxial needle biopsy system was inserted and advanced into the right breast mass breast mass. Six core biopsy specimens were obtained and sent to pathology for further analysis. A marker clip was placed at the biopsy site. The patient tolerated the procedure well and there were no immediate complications. After the appropriate amount of monitored convalescence the patient was discharged from the department. IMPRESSION: 1. Ultrasound-guided right breast mass breast biopsy. <Electronically signed by Jolie Liang > 10/13/20 [id number] <Electronically signed by Jose Munoz > 10/13/20 [id number]
== END ==
LOC: M WHCPRO 06:17
PROVIDERS: ATTEND Family Medicine
DX: D24.1 Benign neoplasm of right breast (principal); N60.21 Fibroadenosis of right breast

== ENCOUNTER 2021-01-19 06:12 | Day surgery (SDC) | payer OTHER ==
[~2021-01-19] VITALS: Ht 177.8 cm; Wt 71.2 kg
[~2021-01-19 06:12] MED LIST changes: +HEPARIN SOD (PORCINE) 5000UNITS/ML 1ML VIAL/SYRINGE SQ ONE; +LR 1,000 ML IV ONE; +VENTAER INH; +ceFAZolin SOD 2 GM in IV 1 EA IV ONE
[2021-01-19] MEDS ORDERED: dexameTHASONE 4 MG/ML 1ML VIAL (J1100 PER 1MG) As Ordered ONE (06:53)
[2021-01-19] MEDS ORDERED: MIDAZOLAM INJ 2MG/2ML VIAL (J2250 PER 1MG) As Ordered ONE (06:53)
[2021-01-19] MEDS ORDERED: fentaNYL 100 MCG/2 ML INJECTION (J3010) As Ordered ONE (06:53)
[2021-01-19] MEDS ORDERED: ONDANSETRON 4MG/2ML VIAL As Ordered ONE ×2 (06:53→09:13)
[2021-01-19] MEDS ORDERED: propofoL 200 MG/20 ML VIAL As Ordered ONE (06:53)
[2021-01-19] MEDS ORDERED: LIDOCAINE 2% 100MG/5ML SDV (FOR ANES.) As Ordered ONE (06:53)
[2021-01-19] MEDS ORDERED: BUPIVACAINE HCL 0.25% 30ML VIAL As Ordered ONE (07:14)
[2021-01-19] MEDS ORDERED: LIDOCAINE 1% SDV 30ML VIAL As Ordered ONE (07:14)
[2021-01-19] MEDS ORDERED: ePHEDrine SULFATE 25 MG/5 ML(5MG/ML) SYRINGE As Ordered ONE (07:47)
[2021-01-19] MEDS ORDERED: PHENYLephrine 500MCG 5ML (100MCG/ML) SYRINGE As Ordered ONE (07:47)
[2021-01-19] MEDS ORDERED: ACETAMINOPHEN 1000MG 100ML IV BTL (OFIRMEV) (J0131 PER 10MG) As Ordered ONE (07:47)
[2021-01-19] MEDS ORDERED: ULTR50TA8 PO (09:11)
[2021-01-19] MEDS ORDERED: LR 1,000 ML IV SCH (09:40)
[2021-01-19] MEDS ORDERED: ONDANSETRON 4MG/2ML VIAL IV PRN (09:40)
[2021-01-19] MEDS ORDERED: fentaNYL 100 MCG/2 ML INJECTION (J3010) IV PRN (09:40)
[2021-01-19] MEDS ORDERED: oxyCODONE 5MG TAB PO PRN (09:40)
[2021-01-19] MEDS ORDERED: KETOROLAC 30 MG/ML 1ML VIAL As Ordered ONE (10:01)
[2021-01-19] MEDS ORDERED: KETOROLAC 30 MG/ML 1ML VIAL IV ONE (10:05)
[2021-01-19 10:20] VITALS: BP 115/74
--- NOTE | 2021-01-19 11:24 | ROOPDOC ---
[facility] Report Of Operation Report of Operation DATE OF PROCEDURE: 01/19/21 PREPROCEDURE DIAGNOSES: Right breast large fibroadenoma POSTPROCEDURE DIAGNOSES: same PROCEDURE PERFORMED: Right excisional biopsy SURGEON: Dr Tito Burroughs ANESTHESIA: general ESTIMATED BLOOD LOSS: Approximately 5 mL. COMPLICATIONS: none FINDINGS: moderate size lobulated mass with hydromark clip on radiography PROCEDURE NOTE: . INDICATIONS: Ms. Villatoro is a 25-year-old woman who was found to have a moderate size palpable right breast mass. This was evaluated with right breast US and 5 cm hypoechoic lesion was found. US guided biopsy of the right breast mass was done and pathology came back as fibroadenoma. Excisional biopsy of the right breast was offered to the patient and she wished to proceed. She was medically cleared for surgery by her primary care doctor. Risks and possible complications of surgical procedure including bleeding, infection and injury to surrounding structures were explained to the patient and she wished to proceed. Consent was signed. My initials were placed on the operative site. Subcutaneous injection of 5000 units of heparin was done in Preop. DETAILS: Patient was taken to the operating room and placed on the operating room table. A sign in was called stating patients name, date of and the procedure to be done. Preoperative antibiotics were infused. Smooth induction of general anesthesia was done. Patients hands were extended on arm rests. Care was taken not to over extend the arms. Pillow was placed under the knees and a foam was placed under the heels. Sequential compression devices were placed and assured to function correctly. Patients right breast and axilla were prepped and draped in the usual fashion. Appropriate time out was done. Patients name, date of , and the procedure to be done were confirmed. Intraop Ultrasound was used to confirm location of the moderate size hypoechoic mass in the lateral left breast. Hydromark clip was also noted inside the mass. Next, local anesthetic using 1% lidocaine and 0.25 % Marcaine 50/50 mix was injected at the site of planned right lateral periareolar incision. The incision was made with the scalpel. Subcutaneous skin flaps were raised. Sharp dissection was carried toward the palpable mass in the right lateral breast. Intraop US was again used to guide the dissection. Fibroadenoma capsule was noted. Blunt dissection was done at this point to free the palpable fibroadenoma from the surrounding attachments. Superior margin of the mass was marked with the short silk stitch. Lateral margin was marked with long stitch. Anchoring stitch was also placed to allow manipulation of the mass and to continue separation of the deeper aspects of the mass from the surrounding tissues. The excisional biopsy specimen was carefully removed from the breast keeping its proper orientation and moved to the back table where margins were marked with the surgical inking kit following the standard colors recommendations. Specimen measured 4x4 cm. Specimen was then placed on the grid and placed in [employer] Specimen Imaging System. The image revealed the moderate size lobulated mass with hydromark clip in the specimen. The specimen was labeled with patients name and right excisional biopsy and sent to pathology. Next, the wound was irrigated thoroughly and adequate hemostasis was assured. Additional local anesthetic was injected into surrounding tissues. space was approximated with 2-0 Vicryl. The dermis was closed with 3-0 Vicryl and skin was closed with 4-0 Monocryl. Surgical glue was placed over the incision. Patient emerged from the anesthesia without any problems. Fluffs were placed over the operative site and patients chest was wrapped snuggly in the MILAGRO wrap. Sponge and instrument counts were done and were correct. Patient tolerated procedure well and was taken to recovery unit in stable condition. TITO BURROUGHS DO Jan 19, 2021 09:12
== END 2021-01-19 10:23 | disposition home or self-care (01) ==
LOC: M SDC 06:12
PROVIDERS: ATTEND Surgery
DX: D24.1 Benign neoplasm of right breast (principal); Z80.3 Family history of malignant neoplasm of breast; Z91.89 Other specified personal risk factors, not elsewhere classified; J45.909 Unspecified asthma, uncomplicated; E28.2 Polycystic ovarian syndrome; F41.9 Anxiety disorder, unspecified; F32.9 Major depressive disorder, single episode, unspecified; F42.9 Obsessive-compulsive disorder, unspecified; Z87.891 Personal history of nicotine dependence; Z79.899 Other long term (current) drug therapy; F17.290 Nicotine dependence, other tobacco product, uncomplicated; Z91.018 Allergy to other foods
CPT/HCPCS: 19125; 36415; 81025; 86850; 86900; 86901; 88307; J0131; J0690; J1100; J1644; J2250; J2370; J2405; J3010